=== PATIENT | female | born 2000 | race Caucasian/White ===

== ENCOUNTER 2021-06-21 13:52 | Emergency (ER) | payer BC, SELFPAY ==
[2021-06-21 14:22] VITALS: BP 121/68; PULSE 112; RESP 18; TEMP 36.6; O2SAT 96
[2021-06-21 16:36] VITALS: BP 103/68; PULSE 155; O2SAT 100
[2021-06-21 16:55] VITALS: BP 130/89; PULSE 135; RESP 18; O2SAT 98
--- NOTE | 2021-06-21 17:06 | ED.NAVMDI ---
HPI - Nausea/Vomiting/Diarrhea General Chief complaint: Nausea/Vomiting/Diarrhea Stated complaint: N/V/D XTD Time Seen by Provider: 06/21/21 16:53 Source: patient Mode of arrival: ambulatory Limitations: no limitations History of Present Illness HPI Narrative: Patient is a 21-year-old female complaining of nausea, vomiting, diarrhea that started early this morning. Patient describes her vomitus is nonbilious nonbloody had approximately 12-15 episodes since onset. Diarrhea described as loose watery nonbloody, has had approximately 10-12 episodes since onset. Patient states that boyfriend has similar symptoms, started last night. Patient denies any chest pain, shortness of breath, abdominal pain, fever, chills or GI bleeding. Related Data Allergies Allergy/AdvReac Type Severity Reaction Status Date / Time No Known Allergies Allergy Verified 06/21/21 16:58 Review of Systems Review of Systems: All systems reviewed & are unremarkable except as noted in HPI and below Constitutional: Constitutional: Denies body ache(s), Denies chills, Denies excessive sweating, Denies fatigue, Denies fever(s), Denies headache(s), Denies lethargy, Denies malaise, Denies weakness and Denies weight loss Eyes: Eyes: Denies blurry vision, Denies change in vision and Denies loss of vision ENT: Denies dizziness, Denies ear discharge, Denies headache(s), Denies lip swelling, Denies epistaxis, Denies nasal congestion, Denies neck pain, Denies throat swelling and Denies tongue swelling Cardiovascular: Cardiovascular: Denies chest pain, Denies chest pain at rest, Denies chest pain with activity, Denies diaphoresis, Denies rapid heart rate, Denies edema, Denies irregular heart rhythm, Denies lightheadedness, Denies palpitations, Denies dyspnea and Denies dyspnea on exertion Respiratory: Respiratory: Denies chest congestion, Denies cough, Denies hemoptysis, Denies dyspnea and Denies dyspnea on exertion Gastrointestinal: Gastrointestinal: Denies abdominal pain, Denies melena, Denies hematochezia and Denies hematemesis Musculoskeletal: Musculoskeletal: Denies abnormal gait, Denies deformity, Denies joint swelling, Denies limited range of motion, Denies neck pain and Denies numbness Neurologic: Denies Abnormal speech present, Denies abnormal gait, Denies confusion, Denies dizziness, Denies headache(s), Denies focal weakness, Denies loss of vision, Denies numbness, Denies Other visual disturbances, Denies Sensory deficit (Neuro) and Denies weakness Psychiatric: Psychiatric: Denies confusion, Denies depression, Denies auditory hallucinations, Denies homicidal ideation and Denies suicidal ideation Endocrine: Endocrine: Denies cold intolerance, Denies excessive sweating, Denies fatigue, Denies heat intolerance and Denies palpitations Hematologic/Lymphatic: Hematologic/Lymphatic: Denies easy bleeding and Denies easy bruising Allergic/Immunologic: Allergic/Immunologic: Denies lip swelling, Denies throat swelling and Denies tongue swelling PMFSH Comments Past medical history: None Family history: Noncontributory Social history: Non-smoker no EtOH or drug use Exam Const: General: cooperative, healthy appearing, comfortable, no acute distress, well developed, alert and awake; No confusion Orientation/consciousness: oriented to person, oriented to place, oriented to time, patient oriented x3 and No confusion Limitations: no limitations HENMT: Head: normal to inspection, normocephalic and atraumatic Ears: hearing grossly normal bilaterally, TM normal on the right and TM normal on the left General nose exam: Normal external nose present, Normal nares present and No nasal discharge present Face and sinus: normal facial exam Mouth: Yes Normal oral and palatal mucosa present, Yes lip normal, Yes tongue normal and Yes oropharynx normal Throat: posterior oropharynx normal, tonsils normal and uvula midline Eyes: General: appearance normal, both eyes and all related structures Pup
[2021-06-21 17:14] LABS: Hematocrit 43.3 % (37.0-47.0); Hemoglobin 14.5 g/dL (12.0-15.0); Mean Corpuscular HGB Conc 33.5 g/dl (32-36); Mean Corpuscular Hemoglobin 27.3 pg (26-34); Mean Corpuscular Volume 81.5 fl (80-100); Mean Platelet Volume 12.4 fl (7.4-10.4); Platelet Count Result 200 k/mm3 (150-375); Red Blood Count 5.31 M/mm3 (4.2-5.4); Red Cell Distribution Width 12.2 % (11.5-14.5); White Blood Count 9.6 K/mm3 (4.5-10.0)
[2021-06-21] MEDS: ONDANSETRON INJ 4 MG/2 ML VIAL IV PUSH (17:23)
[2021-06-21] MEDS: SODIUM CHLORIDE 0.9% IV 1,000 ML 999 ML IV CONT ×2 (17:24→19:01)
[2021-06-21 17:25] LABS: Alanine Aminotransferase 17 U/L (4-35); Albumin Level 4.9 g/dL (3.5-5.1); Alkaline Phosphatase 49 U/L (38-126); Anion Gap 16 mmol/L (8-16); Aspartate Amino Transferase 21 U/L (14-36); Blood Urea Nitrogen 19 mg/dL (7-17); Calcium 9.8 mg/dL (8.4-10.2); Carbon Dioxide 21 mmol/L (22-30); Chloride 104 mmol/L (98-107); Estimated CRCL calculation 114 ml/min; Estimated Glomerular Filt Rate > 60; Glucose 139 mg/dL (65-110); Lipase 15 U/L (23-300); Sodium 141 mmol/L (137-145)
[2021-06-21 18:00] LABS: Band Neutrophils Percent 4 % (0-6); Lymphocytes Absolute Manual 0.19 K/mm3 (1.1-4.5); Monocytes Absolute Manual 0.19 K/mm3 (0.1-0.90); Monocytes Percent Manual 2 % (3-9); Neutrophils Absolute Manual 9.21 K/mm3 (1.7-7.2); Neutrophils Percent Manual 92 % (46-73); Total Cells Counted 100
[2021-06-21 18:01] LABS: Platelet Estimate Adequate (Adequate)
[2021-06-21 18:29] VITALS: BP 107/76; PULSE 105; RESP 19; O2SAT 100
[2021-06-21 19:46] VITALS: BP 104/69; PULSE 95; RESP 18; O2SAT 100
== END 2021-06-21 19:54 | disposition home or self-care (01) ==
PROVIDERS: Emergency Provider Emergency Medicine; PCP Nurse Practitioner Family
DX: K52.9 Noninfective gastroenteritis and colitis, unspecified (principal); R11.2 Nausea with vomiting, unspecified
CPT/HCPCS: 36415; 80053; 81025; 83690; 85025; 96361; 96374; 99284; J2405; J7030

== ENCOUNTER 2022-01-21 07:19 | Outpatient (CLI) | payer BC, SELFPAY ==
[2022-01-21 07:54] LABS: Basophils Absolute Auto 0.1 K/mm3 (0.0-0.1); Basophils Percent Auto 0.9 % (0.2-1.2); Eosinophils Absolute Auto 0.1 K/mm3 (0-0.3); Eosinophils Percent Auto 2.2 % (0-4.4); Hematocrit 36.6 % (37.0-47.0); Hemoglobin 12.3 g/dL (12.0-15.0); Immature Granulocyte Absolute 0.02 K/mm3 (0.00-0.031); Immature Granulocyte Percent A 0.4 % (0-0.5); Lymphocytes Absolute Auto 1.12 K/mm3 (0.9-3.2); Lymphocytes Percent Auto 20.9 % (18.3-44.2); Mean Corpuscular HGB Conc 33.6 g/dl (32-36); Mean Corpuscular Volume 80.3 fl (80-100); Mean Platelet Volume 12.2 fl (7.4-10.4); Monocytes Absolute Auto 0.4 K/mm3 (0.1-0.6); Monocytes Percent Auto 6.5 % (2.6-8.5); Neutrophils Absolute Auto 3.7 K/mm3 (1.3-6.7); Neutrophils Percent Auto 69.1 % (45.5-73.1); Platelet Count Result 178 k/mm3 (150-375); Red Blood Count 4.56 M/mm3 (4.2-5.4); Red Cell Distribution Width 12.6 % (11.5-14.5); White Blood Count 5.4 K/mm3 (4.5-10.0)
[2022-01-21 08:46] LABS: HIV 1/2 Ab P24 Ag Result Negative (Negative)
[2022-01-21 09:45] LABS: Rubella IgG Antibody 48.5 IU/ML
[2022-01-21 11:20] LABS: Hepatitis B Surface Antigen Negative (Negative)
[2022-01-24 07:10] LABS: Rapid Plasma Reagin Non-Reactive (NonReactive)
[2022-01-25 14:55] LABS: Varicella IgG Antibody <135.00 Index (>=165.00)
== END 2022-01-21 07:20 | disposition home or self-care (01) ==
LOC: ANHLAB 07:20
PROVIDERS: PCP Nurse Practitioner Family; Visit Provider Obstetrics & Gynecology
DX: N94.89 Other specified conditions associated with female genital organs and menstrual cycle (principal)
CPT/HCPCS: 36415; 84702; 85025; 86592; 86644; 86703; 86747; 86762; 86787; 86850; 86900; 86901; 87086; 87340; G0432

== ENCOUNTER 2022-05-10 03:04 | Emergency (ER) | payer BC, SELFPAY ==
[2022-05-10 03:06] VITALS: BP 115/71; PULSE 119; RESP 16; TEMP 37; O2SAT 98
--- NOTE | 2022-05-10 03:32 | ED.DENTAL ---
HPI - Dental/Oral General Chief complaint: Dental/Oral Stated complaint: Dental/ R ear pain with edema. 22wk preg Time Seen by Provider: 05/10/22 03:26 History of Present Illness HPI Narrative: Patient is a 22-year-old female who presents ER with dental pain. Noticed a couple days what she is starting to some best comfort in her left ear. She thought it is related to his she had increased pain over the last 2 days and tonight realized that her left upper lip was swelling and has discomfort with eating and drinking. No fevers or chills or sweats. No difficulty breathing or swallowing. Patient is currently 22 weeks . Related Data Home Medications Medication Instructions Recorded Confirmed doxylamine succinate 25 mg tablet 25 mg PO QHS PRN 03/21/22 03/21/22 (Unisom (doxylamine)) vitamins-iron fumarate 65 1 tablet PO DAILY 03/21/22 03/21/22 mg iron-folic acid 1 mg tablet Allergies Allergy/AdvReac Type Severity Reaction Status Date / Time No Known Allergies Allergy Verified 05/10/22 03:19 Review of Systems Constitutional: Constitutional: Denies chills and Denies fever(s) ENT: Denies nasal congestion and Denies sore throat Comments: Dental pain, ear pain. 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 HEAD: Normocephalic, atraumatic. ENT: Mucous membranes moist. Mild swelling left upper lip without discernible abscess in the intraoral aspect. TMs normal bilaterally. Nostrils free of abscess/swelling. NEURO: Alert and oriented x3. PSYCH: Normal mood and affect. Course Course Emergency Course: Discussed treatment plan. Discharge home. Vital Signs Vital signs: Vital Signs Temperature 98.6 F 05/10/22 03:06 Pulse Rate 119 H 05/10/22 03:06 Respiratory Rate 16 05/10/22 03:06 Blood Pressure 115/71 05/10/22 03:06 Pulse Oximetry 98 05/10/22 03:06 Oxygen Delivery Room Air 05/10/22 03:06 Temperature 98.6 F 05/10/22 03:06 Pulse Rate 119 H 05/10/22 03:06 Respiratory Rate 16 05/10/22 03:06 Blood Pressure 115/71 05/10/22 03:06 Pulse Oximetry 98 05/10/22 03:06 Oxygen Delivery Room Air 05/10/22 03:06 Discharge Plan Discharge Clinical Impression: Toothache Patient Disposition: Home, Self-Care Condition: Stable Instructions: Antibiotic Form, Dental Abscess (ED) Additional Instructions: Return the ER if you have difficulty breathing, you have difficulty swallowing, you have worsening swelling, you have additional concerns. Follow-up with a dentist for further treatment evaluation. Prescriptions: New penicillin V potassium 500 mg tablet 500 mg PO QID 7 Days Qty: 28 0RF No Action pyridoxine (vitamin B6) 25 mg tablet 25 mg PO TID Qty: 120 1RF Unisom (doxylamine) 25 mg tablet 25 mg PO QHS PRN vit-iron fum-folic ac 65 mg iron- 1 mg tablet 1 tablet PO DAILY Follow-up/Referrals: Haile,ASHANTI Bella [Primary Care Provider] -
== END 2022-05-10 03:40 | disposition home or self-care (01) ==
PROVIDERS: Emergency Provider Emergency Medicine; PCP Nurse Practitioner Family
DX: K08.89 Other specified disorders of teeth and supporting structures (principal)
CPT/HCPCS: 99283

== ENCOUNTER 2022-05-10 12:57 | Emergency (ER) | payer BC, SELFPAY ==
--- NOTE | ~2022-05-10 | CT_ITS ---
EXAMINATION: CT facial bones w con DATE: 05/10/2022 16:17 INDICATION: Rule out dental abscess . TECHNIQUE: Computed tomography (CT) of the facial bones and maxillofacial region was performed with 7 5 mL intravenous contrast. Automated exposure control and iterative reconstruction technique were emp loyed. The dose-length product was 333.40 mGy-cm. COMPARISON: None. FINDINGS: Soft Tissues: 5 x 14 mm fluid density rim-enhancing collection adjacent to the left anterior maxilla ry arch, with surrounding soft tissue induration extending into the left cheek, left upper lip and le ft side of the mouth, and adjacent to the left nose. Facial bones: No acute fracture. Periapical lucency, with the suggestion of cortical breakthrough at the left lateral maxillary incisor. Additional periapical lucency adjacent to the roots of the right first maxillary molar, with cortical breakthrough but no adjacent soft tissue change. Eyes: The globes are intact. The soft tissue planes of the orbits are maintained. Paranasal Sinuses: Mild bilateral maxillary sinus mucosal thickening, the remaining visualized aerat ed spaces are clear. Foreign Bodies: No radiopaque foreign bodies. Other Findings: None. IMPRESSION: 14 mm odontogenic abscess originating from the left lateral maxillary incisor, with considerable surr ounding left facial cellulitis. Reviewed, dictated and finalized at location K. IMPRESSION: 14 mm odontogenic abscess originating from the left lateral maxillary incisor, with considerable surrounding left facial cellulitis.
[2022-05-10 13:03] VITALS: BP 136/80; PULSE 110; RESP 20; TEMP 36.2; O2SAT 100
--- NOTE | 2022-05-10 14:47 | ED.GENADULT ---
HPI - General Adult General Chief complaint: Unspecified Stated complaint: increaesed facial swelling since this ams visit Time Seen by Provider: 05/10/22 14:34 Source: patient Mode of arrival: ambulatory Limitations: no limitations Related Data Home Medications Medication Instructions Recorded Confirmed doxylamine succinate 25 mg tablet 25 mg PO QHS PRN 03/21/22 03/21/22 (Unisom (doxylamine)) vitamins-iron fumarate 65 1 tablet PO DAILY 03/21/22 03/21/22 mg iron-folic acid 1 mg tablet Allergies Allergy/AdvReac Type Severity Reaction Status Date / Time No Known Allergies Allergy Verified 05/10/22 03:19 [facility] Past Medical History Medical History Anxiety Depression Family History Family History Other Hypertension Social History Social History (Updated 01/19/22 @ 15:16 by Monica Clark MA) Smoking status: Never smoker Alcohol intake: never Substance use: never Substance use type: does not use 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 Rangel came to the emergency room and try to aspirate the abscess without success. Patient received IV fluid, IV Unasyn of 3 g, was advised to stop penicillin and to start clindamycin and to follow-up with Dr. Garcia, the oral surgeon in [place]. I gave the patient a copy of the blood work-up and CD of the CAT scan Vital Signs Vital signs: Vital Signs Temperature 36.2 C L 05/10/22 13:03 Pulse Rate 110 H 05/10/22 13:03 Respiratory Rate 20 05/10/22 13:03 Blood Pressure 136/80 05/10/22 13:03 Pulse Oximetry 100 05/10/22 13:03 Oxygen Delivery Room Air 05/10/22 13:03 Temperature 36.2 C L 05/10/22 13:03 Pulse Rate 110 H 05/10/22 13:03 Respiratory Rate 20 05/10/22 13:03 Blood Pressure 136/80 05/10/22 13:03 Pulse Oximetry 100 05/10/22 13:03 Oxygen Delivery Room Air 05/10/22 13:03 Medical Decision Making Vital Signs Vital Signs: Vital Signs Temperature 36.2 C L 05/10/22 13:03 Pulse Rate 110 H 05/10/22 13:03 Respiratory Rate 20 05/10/22 13:03 Blood Pressure 136/80 05/10/22 13:03 Pulse Oximetry 100 05/10/22 13:03 Oxygen Delivery Room Air 05/10/22 13:03 Temperature 36.2 C L 05/10/22 13:03 Pulse Rate 110 H 05/10/22 13:03 Respiratory Rate 20 05/10/22 13:03 Blood Pressure 136/80 05/10/22 13:03 Pulse Oximetry 100 05/10/22 13:03 Oxygen Delivery Room Air 05/10/22 13:03 Lab Data Result diagrams: 05/10/22 15:24 05/10/22 15:24 Labs: Lab Results 05/10/22 05/10/22 Range/Units 15:24 15:24 WBC 14.7 H (4.5-10.0) K/mm3 RBC 4.37 (4.2-5.4) M/mm3 Hgb 11.9 L (12.0-15.0) g/dL Hct 36.1 L (37.0-47.0) % MCV 82.6 (80-100) fl MCH 27.2 (26-34) pg MCHC 33.0 (32-36) g/dl RDW 12.8 (11.5-14.5) % Plt Count 174 (150-375) k/mm3 MPV 11.4 H (7.4-10.4) fl Immature Gran % (Auto) 0.9 H (0-0.5) % Neut % (Auto) 85.2 H (45.5-73.1) % Lymph % (Auto) 6.1 L (18.3-44.2) % Major % (Auto) 7.2 (2.6-8.5) % Eos % (Auto) 0.3 (0-4.4) % Baso % (Auto) 0.3 (0.2-1.2) % Lymph # (Auto) 0.89 L (0.9-3.2) K/mm3 Major # (Auto) 1.1 H (0.1-0.6) K/mm3 Eos # (Auto) 0.1 (0-0.3) K/mm3 Baso # (Auto) 0.0 (0.0-0.1) K/mm3 Abs Immat Gran (auto) 0.13 H (0.00-0.031) K/mm3 Absolute Neuts (auto) 12.5 H (1.3-6.7) K/mm3 Absolute Nucleated RBC 0.0 (0.0-0.012) K/mm3 Nucleated RBC % 0.0 (0.0-0.2) % Sodium 137 (137-145) mmol/L Potassium 3.7 (3.4-5.0) mmol/L Chloride 103 (98-107) mmol/L Carbon Dioxide 22 (22-30) mmol/L Anion Gap 12 (8-16) mmol/L BUN 4 L
[2022-05-10 15:31] LABS: Basophils Percent Auto 0.3 % (0.2-1.2); Eosinophils Absolute Auto 0.1 K/mm3 (0-0.3); Eosinophils Percent Auto 0.3 % (0-4.4); Hematocrit 36.1 % (37.0-47.0); Hemoglobin 11.9 g/dL (12.0-15.0); Immature Granulocyte Absolute 0.13 K/mm3 (0.00-0.031); Immature Granulocyte Percent A 0.9 % (0-0.5); Lymphocytes Absolute Auto 0.89 K/mm3 (0.9-3.2); Lymphocytes Percent Auto 6.1 % (18.3-44.2); Mean Corpuscular Hemoglobin 27.2 pg (26-34); Mean Corpuscular Volume 82.6 fl (80-100); Mean Platelet Volume 11.4 fl (7.4-10.4); Monocytes Absolute Auto 1.1 K/mm3 (0.1-0.6); Monocytes Percent Auto 7.2 % (2.6-8.5); Neutrophils Absolute Auto 12.5 K/mm3 (1.3-6.7); Neutrophils Percent Auto 85.2 % (45.5-73.1); Platelet Count Result 174 k/mm3 (150-375); Red Blood Count 4.37 M/mm3 (4.2-5.4); Red Cell Distribution Width 12.8 % (11.5-14.5); White Blood Count 14.7 K/mm3 (4.5-10.0)
[2022-05-10 15:41] LABS: Anion Gap 12 mmol/L (8-16); Blood Urea Nitrogen 4 mg/dL (7-17); Carbon Dioxide 22 mmol/L (22-30); Chloride 103 mmol/L (98-107); Estimated CRCL calculation 150 ml/min; Estimated Glomerular Filt Rate > 60; Glucose 97 mg/dL (65-110); Potassium 3.7 mmol/L (3.4-5.0); Sodium 137 mmol/L (137-145)
--- NOTE | 2022-05-10 15:47 | PC.NURSE ---
Pt to CT
--- NOTE | 2022-05-10 18:02 | P.PCNBED_ITS ---
Procedures Other Procedures Procedure 1: Other Procedure: Incision and drainage of left maxillary facial abscess CT reviewed consents obtained risks benefits costs discussed in great detail. Area had a small area of topical Cetacaine applied 0.5 cc 1% lidocaine injected into the gingival la bial sulcus 11 blade utilized to cut the mucosa blunt dissection was carried in the abscess cavity very scant amount of purulence came patient tolerated the procedure well
--- NOTE | 2022-05-10 18:02 | WPDCN ---
Assessment and Plan Assessment and plan (1) Toothache: Code(s): K08.89 - Other specified disorders of teeth and supporting structures Status: Acute Assessment and Plan: could consider changing from penicillin K to clindamycin if safe for recommend follow-up with Oral math facial oral maxillary facial surgery perhaps at [facility]. warm compresses patient must push on this area if there is any remnant abscess it could be expressed out. (2) Abscess, dental: Code(s): K04.7 - Periapical abscess without sinus Status: Acute (3) Facial abscess: Code(s): L02.01 - Cutaneous abscess of face Status: Acute HPI Data of Consult Date/Time: 05/10/22 18:02 Primary Care Provider: Shayne Be, CLINIC MD ASSOCIATE Consult Narrative Narrative: Cindy Sotelo is a 22 year old female with odontogenic left lateral incisor abscess spread into face has taken penicillin K x1 patient is also . ENT consult id for further evaluation treatment CT does demonstrate an odontogenic abscess which has spread into the soft tissue of the face released with spreading cellulitis. Facial edema. 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 Gender identity (if verbalized by the patient): Female Sexual Orientation (if Verbalized by the Patient): Straight or Heterosexual Meds Home Medications and Allergies Home Medications Medication Instructions Recorded Confirmed Type pyridoxine (vitamin B6) 25 mg 25 mg PO TID #120 tabs 02/22/22 02/22/22 Rx tablet doxylamine succinate 25 mg tablet 25 mg PO QHS PRN 03/21/22 03/21/22 History (Unisom (doxylamine)) vitamins-iron fumarate 65 1 tablet PO DAILY 03/21/22 03/21/22 History mg iron-folic acid 1 mg tablet clindamycin HCl 300 mg capsule 300 mg PO Q6H #40 caps 05/10/22 Rx (Cleocin HCl) hydrocodone 5 mg-acetaminophen 325 1 tablet PO Q6H #20 tabs 05/10/22 Rx mg tablet penicillin V potassium 500 mg 500 mg PO QID 7 days #28 tabs 05/10/22 Rx tablet Allergies Allergy/AdvReac Type Severity Reaction Status Date / Time No Known Allergies Allergy Verified 05/10/22 03:19 Vital Signs Vital Signs - 24 hr 05/10/22 13:03 Temperature 36.2 C L Pulse Rate 110 H Respiratory Rate 20 Blood Pressure 136/80 Pulse Oximetry 100 Oxygen Delivery Room Air Exam Narrative: Facial edema see procedure note abscess drained with very little purulence obtained. I was able to pop into the cavity Results Labs CBC & Chem 7: 05/10/22 15:24 05/10/22 15:24 Labs: Short CBC 05/10/22 Range/Units 15:24 WBC 14.7 H (4.5-10.0) K/mm3 Hgb 11.9 L (12.0-15.0) g/dL Hct 36.1 L (37.0-47.0) % Plt Count 174 (150-375) k/mm3 BMP 05/10/22 15:24 Sodium 137 Potassium 3.7 Chloride 103 Carbon Dioxide 22 BUN 4 L D Creatinine 0.50 L Glucose 97 Calcium 9.0
[2022-05-10] MEDS: AMPICILLIN SULB 3 GM/NS 100 ML 3 GM/100 ML VIAL IVPB (18:23)
[2022-05-10 18:52] VITALS: BP 131/84; PULSE 108; RESP 18; O2SAT 100
== END 2022-05-10 19:07 | disposition home or self-care (01) ==
PROVIDERS: Emergency Provider Emergency Medicine; PCP Nurse Practitioner Family
DX: K04.7 Periapical abscess without sinus (principal); K12.2 Cellulitis and abscess of mouth; F41.9 Anxiety disorder, unspecified; F32.9 Major depressive disorder, single episode, unspecified
CPT/HCPCS: 36415; 41800; 70487; 80048; 85025; 96374; 99284; J0295; Q9967

== ENCOUNTER 2022-06-21 07:43 | Outpatient (CLI) | payer BC, SELFPAY ==
[2022-06-21 09:59] LABS: Basophils Absolute Auto 0.1 K/mm3 (0.0-0.1); Basophils Percent Auto 0.6 % (0.2-1.2); Eosinophils Absolute Auto 0.2 K/mm3 (0-0.3); Eosinophils Percent Auto 1.8 % (0-4.4); Hematocrit 32.8 % (37.0-47.0); Hemoglobin 10.5 g/dL (12.0-15.0); Immature Granulocyte Absolute 0.09 K/mm3 (0.00-0.031); Lymphocytes Absolute Auto 1.27 K/mm3 (0.9-3.2); Lymphocytes Percent Auto 14.4 % (18.3-44.2); Mean Corpuscular Hemoglobin 26.7 pg (26-34); Mean Corpuscular Volume 83.5 fl (80-100); Mean Platelet Volume 12.5 fl (7.4-10.4); Monocytes Absolute Auto 0.6 K/mm3 (0.1-0.6); Monocytes Percent Auto 7.1 % (2.6-8.5); Neutrophils Absolute Auto 6.6 K/mm3 (1.3-6.7); Neutrophils Percent Auto 75.1 % (45.5-73.1); Platelet Count Result 174 k/mm3 (150-375); Red Blood Count 3.93 M/mm3 (4.2-5.4); Red Cell Distribution Width 12.7 % (11.5-14.5); White Blood Count 8.8 K/mm3 (4.5-10.0)
[2022-06-21 10:03] LABS: Glucose 1 Hour PP 50gm Dose 92 mg/dL
[2022-06-21 10:44] LABS: HIV 1/2 Ab P24 Ag Result Negative (Negative)
[2022-06-21] MEDS: RHO(D) IMMUNE GLOBULIN 300 MCG/2 ML SYRINGE IM (12:49)
== END 2022-06-21 07:44 | disposition home or self-care (01) ==
LOC: ANHLAB 07:44
PROVIDERS: PCP Nurse Practitioner Family; Visit Provider Obstetrics & Gynecology
DX: Z34.90 Encounter for supervision of normal pregnancy, unspecified, unspecified trimester (principal); Z3A.00 Weeks of gestation of pregnancy not specified
CPT/HCPCS: 36415; 82947; 85025; 85461; 86703; 86850; 86900; 86901; 90384; 96372; G0432; J2790

== ENCOUNTER 2022-09-13 16:49 | Inpatient (IN) | payer BC, SELFPAY ==
[2022-09-13 17:26] VITALS: BMI 30.8
--- NOTE | 2022-09-13 17:34 | LDADM ---
This patient, Cindy Sotelo, was admitted to Labor/Delivery/Recovery 108 on 09/13/22 at 16:49. Plans for labor, pain management and were discussed with patient. Patient/family oriented to hospital policies and general routines including ID bracelet, bed and alarms, visiting hours, pain management, procedures, bathroom and other care routines, personal items, smoking policy, room service/diet and guest tray routines, infant security routines, and visiting hours. Patient/Family are encouraged to report perceived risks to care and to ask questions if they do not understand what they are told or what they should do. See OBIX for further documentation.
[2022-09-13 17:50] LABS: Basophils Absolute Auto 0.1 K/mm3 (0.0-0.1); Basophils Percent Auto 0.5 % (0.2-1.2); Eosinophils Absolute Auto 0.2 K/mm3 (0-0.3); Eosinophils Percent Auto 1.5 % (0-4.4); Hematocrit 38.5 % (37.0-47.0); Immature Granulocyte Absolute 0.27 K/mm3 (0.00-0.031); Immature Granulocyte Percent A 2.3 % (0-0.5); Lymphocytes Absolute Auto 1.68 K/mm3 (0.9-3.2); Lymphocytes Percent Auto 14.4 % (18.3-44.2); Mean Corpuscular HGB Conc 33.8 g/dl (32-36); Mean Corpuscular Hemoglobin 27.4 pg (26-34); Mean Corpuscular Volume 81.2 fl (80-100); Mean Platelet Volume 11.9 fl (7.4-10.4); Monocytes Absolute Auto 0.8 K/mm3 (0.1-0.6); Monocytes Percent Auto 7.1 % (2.6-8.5); Neutrophils Absolute Auto 8.7 K/mm3 (1.3-6.7); Neutrophils Percent Auto 74.2 % (45.5-73.1); Platelet Count Result 133 k/mm3 (150-375); Red Blood Count 4.74 M/mm3 (4.2-5.4); Red Cell Distribution Width 14.7 % (11.5-14.5); White Blood Count 11.7 K/mm3 (4.5-10.0)
[2022-09-13 18:30] VITALS: RESP 14; TEMP 36.6
[2022-09-13] MEDS: LACTATED RINGERS 1,000 ML 125 ML IV CONT (18:40)
--- NOTE | 2022-09-13 18:54 | WPDANESEPP ---
Anes - Eval Pre Procedure Procedure: labor epidural Date/Time: 09/13/22 18:54 Surgeon: candelario Preop Diagnosis: pain during labor Pre Op Diagnosis: iol Patient Data Age: 22 Gender: F Height: 1.68 m Weight: 86.6 kg Last Vital Signs O2 Del Method Room Air 09/13/22 17:26 Allergies Allergy/AdvReac Type Severity Reaction Status Date / Time No Known Allergies Allergy Verified 09/12/22 16:51 Home Medications Medication Instructions Recorded Confirmed Type vitamins-iron fumarate 65 1 tablet PO DAILY 03/21/22 09/12/22 History mg iron-folic acid 1 mg tablet ferrous sulfate 325 mg (65 mg 325 mg PO DAILY 08/14/22 09/12/22 History iron) tablet,delayed release Laboratory Tests 09/13/22 09/13/22 09/13/22 17:20 17:20 17:20 WBC 11.7 K/mm3 H K/mm3 (4.5-10.0) RBC 4.74 M/mm3 M/mm3 (4.2-5.4) Hgb 13.0 g/dL g/dL (12.0-15.0) Hct 38.5 % % (37.0-47.0) MCV 81.2 fl fl (80-100) MCH 27.4 pg pg (26-34) MCHC 33.8 g/dl g/dl (32-36) RDW 14.7 % H % (11.5-14.5) Plt Count 133 k/mm3 L k/mm3 (150-375) MPV 11.9 fl H fl (7.4-10.4) Immature Gran % (Auto) 2.3 % H % (0-0.5) Neut % (Auto) 74.2 % H % (45.5-73.1) Lymph % (Auto) 14.4 % L % (18.3-44.2) [place] % (Auto) 7.1 % % (2.6-8.5) Eos % (Auto) 1.5 % % (0-4.4) Baso % (Auto) 0.5 % % (0.2-1.2) Lymph # (Auto) 1.68 K/mm3 K/mm3 (0.9-3.2) [place] # (Auto) 0.8 K/mm3 H K/mm3 (0.1-0.6) Eos # (Auto) 0.2 K/mm3 K/mm3 (0-0.3) Baso # (Auto) 0.1 K/mm3 K/mm3 (0.0-0.1) Abs Immat Gran (auto) 0.27 K/mm3 H K/mm3 (0.00-0.031) Absolute Neuts (auto) 8.7 K/mm3 H K/mm3 (1.3-6.7) Absolute Nucleated RBC 0.0 K/mm3 K/mm3 (0.0-0.012) Nucleated RBC % 0.0 % % (0.0-0.2) RPR Pending Blood Type A Negative Antibody Screen Pending Patient hx anesthesia problems: none Family hx anesthesia problems: none Results Review: All pre-operative results and documents have been reviewed as part of the pre-operative evaluation. [facility] Past Medical History Medical History Anxiety Depression Family History Family History Grandparent Hypertension Mother Hypertension Social History Social History Smoking status: Never smoker Alcohol intake: never Substance use: never Substance use type: does not use Lack of Transportation: No Lack of Food: Never True Current Housing: I Have Housing Concerned About Future Housing: No Difficulty Paying Gas/Electric Bills: No Difficulty Paying for Meds: No Currently Unemployed: No Education: High School Diploma/GED Difficulty w/ Childcare or Family Care: No Living arrangements: with family Occupation/Education: occupation 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
[2022-09-13 19:10] VITALS: RESP 14; TEMP 36.6
[2022-09-13] MEDS: DINOPROSTONE 10 MG VAG INSERT VAGINAL (19:10)
[2022-09-13 19:40] VITALS: RESP 16; TEMP 36.8
[2022-09-13 20:10] VITALS: RESP 14; TEMP 36.6
[2022-09-13 20:40] VITALS: RESP 16; TEMP 36.8
[2022-09-13 21:10] VITALS: RESP 12; TEMP 36.6
[2022-09-14] VITALS (172 sets, daily range): BP systolic 70–136; BP diastolic 50–91; PULSE 80–153; RESP 16–18; TEMP 36.6–37.9; O2SAT 96–100
[2022-09-14] MEDS: LACTATED RINGERS 1,000 ML 125 ML IV CONT ×3 (02:30→08:45)
[2022-09-14] MEDS: OXYTOCIN 30 UNITS/NS 500 ML 30 UNITS/500 ML BAG IV CONT (09:41)
--- NOTE | 2022-09-14 10:12 | WPDHPUPDATE1 ---
History and Physical Update Update Date/Time: 09/14/22 10:12 History and Physical has been reviewed, including an updated exam of the patient. There are NO changes in the patient's condition. Risks, benefits, and alternatives have been discussed and questions answered. Patient agrees to proceed with procedure.
--- NOTE | 2022-09-14 10:12 | WPDOBADMIT ---
Obstetrics - Admit Note Admission Note: record reviewed. No pertinent additions to the history and/or any subsequent changes in the physical findings that are not consistent with the expected course of the were found. Additions to the history and/or subsequent changes in the physical findings follow. None.
--- NOTE | 2022-09-14 10:12 | PM.OBPRVD ---
OB - Delivery Note Procedure Induction method: Per Cervidil Protocol Delivery augmentation: Rupture of Membranes Delivery monitor: External FHT and External Uterine Route of delivery: Episiotomy description: None Laceration Description: Periurethral and Perineal - 2nd Degree Delivery repair: chromic Specimen: No Quantitative Blood Loss (ml): 500 Anesthesia type: Epidural Disposition: Floor Complications: None Narrative: patient prepped draped usual manner for this procedure. Maternal expulsive efforts readily delivered vertex over intact perineum. Nuchal cord was noted and reduced. Rest baby was delivered without difficulty and baby was placed on maternal abdomen. Cord was clamped and cut and placenta delivered spontaneously. Evaluation of the cervix vaginal vulva revealed second-degree lacerations wears right periurethral tear. Pay reach through tear was rendered hemostatic with [id number] 2-0 chromic suture. The vaginal tissue then was approximated using 2-0 chromic in a running interlocking manner to approximate the vaginal tissue, deep tissue also with 2-0 chromic and a subcuticular layer with good approximation hemostasis noted. Uterus was well contracted there was no significant bleeding the patient and baby were both doing well postoperatively. Baby Weeks of gestation at delivery: 40 Infant gender: Female Weight (pounds): 7 Weight (ounces): 6 presentation: vertex Placenta delivery description: Spontaneous Cord Vessel Description: 3 Vessels, Nuchal Cord and Reduced score one minute: 8 score five minutes: 9 AMG Delivery Billing Delivery Delivery: Delivery Charge
[2022-09-14] MEDS: OXYTOCIN 30 UNITS/NS 500 ML 30 UNITS/500 ML BAG 125 UNITS IV CONT (10:21)
[2022-09-14] MEDS: miSOPROStol 200 MCG TABLET 1000 MCG RECTAL (11:26)
[2022-09-14] MEDS: ceFAZolin 2 GM/D5W 50 ML 2 GM/50 ML BAG IVPB (11:50)
[2022-09-14 13:09] LABS: Rapid Plasma Reagin Non-Reactive (NonReactive)
--- NOTE | 2022-09-14 14:05 | OBPPTRN ---
Patient transferred to post room # 291 via wheelchair accompanied by support person and infant. PT introductions made and plan of care discussed per post , pain management, breast feeding, daily care activities. PT and spouse both recipients of such instructions and no barriers to learning identified at this time. PT received such instructions per one to one discussion, mom baby care guide and demonstrations this shift. PT verbalized understanding of such care.
[2022-09-14] MEDS: WITCH HAZEL 40 PADS 1 PAD TOPICAL (14:08)
[2022-09-14] MEDS: BENZOCAINE 20% AER SPR (*SP) 56 GM CAN 1 SPRAY TOPICAL (14:08)
--- NOTE | 2022-09-14 15:43 | PC.NURSE ---
Addendum entered by Ly Desir RN 09/14/22 15:58: Initial assessment of the breast there was a blood blister in the center of the right nipple and left nipple is sore as well. Encouraged mother with supporting the breast with the sandwich hold, big,open, wide gape, then given a mouthful of breast to protect the nipple. Original Note: [id number] Introductions were made, then consulted with patient to assess needs related to . Mother led the conversation with her?plans to feed?her and the?experience so far. Resources provided for inpatient and outpatient services with the feeding sheet, mom/baby guide and name written on the white board. Mother voiced understanding of information and consents for assistance. Mother works well with her infant with encouragement and education. Encouraged understanding of the benefits of skin to skin (demonstrating unwrapping and placing upright on her chest), stimulating with massage touch, changing positions to encourage wakefulness, how to watch for early feeding cues, responsive feeding, feeding on demand (aiming for 8-12 times in 24 hours, about every 2-3 hours), milk production, building/maintaining a milk supply, duration of feeding, signs of adequate intake/output and how to record on the feeding sheet. Infant was unwrapped and placed skin to skin on mother. Reviewed positioning and ear, shoulder, hip alignment, supporting the breast to facilitate a deep latch, asymmetrical latch (off-center), leading with the chin with a big, open, wide gape and body close to mother. Infant latched optimally to the left breast in cross cradle position. Education given to mother of how to visualize suck/swallow ratios and listen for drinking at the breast. Infant was able to maintain latch without discomfort to mother. Nipple care reviewed with optimal latch and good positioning. Reminding mother of comfort measures of healing with a warm and wet washcloth to rinse breast, then leave open to air-dry as needed. Reviewed good handwashing when or touching the breast/nipples to prevent infection. Resources used to facilitate learning were used with the visual handouts, tool, mom and baby guide. Mother voiced understanding of skin to skin, stimulating with massage touch, responsive feedings, hand expressed colostrum, talking to to encourage if it has been 2 -2.5 hours since the start of the last , to call if does not latch, or if there is discomfort with . Resources provided for inpatient/outpatient with the office number on the feeding sheet and the mom/baby guide. Parents voiced understanding of information, demonstrated learning and will call if there is a request for assistance.
[2022-09-14] MEDS: DOCUSATE SODIUM 100 MG CAPSULE PO (16:06)
[2022-09-14] MEDS: IBUPROFEN 600 MG TABLET PO ×2 (16:06→23:10)
[2022-09-14] MEDS: POLYSACCHARIDE IRON COMPLEX 150 MG CAPSULE PO (16:07)
[2022-09-14] MEDS: ACETAMINOPHEN 325 MG TABLET 650 MG PO ×2 (16:07→23:10)
[2022-09-14] MEDS: LANOLIN (LANSINOH) 7.5 GM CREAM 1 APPLIC TOPICAL (16:08)
[2022-09-15 03:40] VITALS: BP 107/62; PULSE 96; RESP 18; TEMP 36.5
[2022-09-15 05:08] LABS: Hematocrit 28.1 % (37.0-47.0); Hemoglobin 9.2 g/dL (12.0-15.0)
[2022-09-15 07:40] VITALS: BP 114/65; PULSE 103; RESP 16; TEMP 37; O2SAT 98
--- NOTE | 2022-09-15 08:52 | PM.OBDSVD ---
DS: Admitting Diagnosis Discharge Date 09/15/2022 Admitting Diagnosis DS: Discharge Diagnosis Discharge Diagnosis (1) , delivered: Code(s): O80 - Encounter for full-term uncomplicated delivery Status: Acute (2) Retained placenta: Code(s): O73.0 - Retained placenta without hemorrhage Status: Acute OB - DS: Summary OB Procedures : None OB Procedures Intrapartum: Spontaneous Vag Delivery and Uterine exploration ( with removal of retained placenta) OB Procedures: : None Time Spent with Patient Time attestation: Total time spent providing and/or coordinating discharge services: DS: Data Data Completed and Pending Pending studies at discharge: Pending at discharge 09/14/22 09:55 Surgical [PTH] Routine Labs on day of discharge: Labs from last 24 hours 09/15/22 09/15/22 09/13/22 03:41 03:41 17:20 Hgb 9.2 L D Hct 28.1 L RPR Non-reactive Blood Type A Negative Antibody Screen TNP Screen Pending Baby's Blood Type Pending Baby's JAMES Pending Doses of RhIg Required Pending Discharge Plan Discharge Discharging Clinician: Mart Villarreal Patient Disposition: Home, Self-Care Activity: as tolerated Diet: as tolerated Patient Instructions: Antibiotic Form Stand Alone Forms: General Discharge Information Follow-up/Referrals: Mart Villarreal MD [Physician] - 3 Weeks Discharge Medications: New ibuprofen 600 mg Tablet 600 mg PO Q6H PRN (Reason: Cramping) Qty: 30 0RF Continued vit-iron fum-folic ac 65 mg iron- 1 mg tablet 1 tablet PO DAILY ferrous sulfate 325 mg (65 mg iron) Tablet,Delayed Release (Dr/Ec) 325 mg PO DAILY Date of admission: 09/13/22 16:49 Primary Care Provider: JoseShayne Admitting Provider: Mart Villarreal Attending physician on admission: Mart Villarreal Condition: Stable
[2022-09-15] MEDS: IBUPROFEN 600 MG TABLET PO (10:05)
[2022-09-15] MEDS: MULTIVIT/MIN/PREN/FOL AC/IRON TABLET 1 TAB PO (10:05)
[2022-09-15] MEDS: DOCUSATE SODIUM 100 MG CAPSULE PO (10:05)
[2022-09-15] MEDS: POLYSACCHARIDE IRON COMPLEX 150 MG CAPSULE PO (10:05)
[2022-09-15] MEDS: RHO(D) IMMUNE GLOBULIN 300 MCG/2 ML SYRINGE IM (11:58)
--- NOTE | 2022-09-15 13:16 | PC.NURSE ---
[id number] Mother led the conversation with her experience and plan to feed her so far and her ability to independently latch optimally without discomfort. Reminded parents to use good handwashing technique to prevent infection. Mother is feeding appropriately for growth of and understands stimulating to eat if needed. Infant has had appropriate feedings in the last 24 hours meets the outcomes for weight, output and jaundice at this time. Mother states she is confident to continue effectively breastfeed her infant at home, when to call for assistance and will call for an assessment of the next breastfeed since is not wanting to attempt at this time. Reinforced understanding of milk production, transition of milk, signs of adequate intake, transition of stool, prevention/relief of engorgement, responsive watching for feeding cues, the different methods of stimulating to breastfeed 2-3 hours after the start of the last feeding, community resources, medication information reviewed per [facility] and when to call a provider using the resource of the mom and baby guide/[facility] website. Mother voiced understanding of the education shared. [id number] Mother demonstrated optimally latching and effectively on the left breast using the football positioning, swallowing heard, visualized and pain or discomfort was denied. Reported to the primary RN.
[2022-09-16 08:23] VITALS: BP 118/73; PULSE 104; RESP 16; TEMP 37.1; O2SAT 100
== END 2022-09-15 12:47 | disposition home or self-care (01) | DRG 806 ==
LOC: ANHLDR 09-14 08:37 → ANHOB2 09-14 14:29
PROVIDERS: Admitting Provider Obstetrics & Gynecology; PCP Nurse Practitioner Family; Visit Provider Obstetrics & Gynecology
DX: O69.81X0 Labor and delivery complicated by cord around neck, without compression, not applicable or unspecified (principal); O72.2 Delayed and secondary postpartum hemorrhage; Z37.0 Single live birth; Z3A.40 40 weeks gestation of pregnancy; O36.8330 Maternal care for abnormalities of the fetal heart rate or rhythm, third trimester, not applicable or unspecified; O70.1 Second degree perineal laceration during delivery; O71.82 Other specified trauma to perineum and vulva
CPT/HCPCS: 36415; 85014; 85018; 85025; 85460; 85461; 86592; 86850; 86880; 86900; 86901; 88307; 90384; A9270; J0690; J2590; J2790; J2795; J7120

== ENCOUNTER 2022-09-23 06:51 | Emergency (ER) | payer BC, SELFPAY ==
[2022-09-23 06:54] VITALS: BP 125/83; PULSE 109; RESP 16; TEMP 36.8; O2SAT 98
--- NOTE | 2022-09-23 07:23 | ED.DENTAL ---
HPI - Dental/Oral General Chief complaint: Dental/Oral Stated complaint: swelling on upper mouth, poss bad tooth Time Seen by Provider: 09/23/22 07:07 History of Present Illness HPI Narrative: Patient is a 22-year-old female who presents to the ER with swelling to the upper left. Left side. She also has what appears to be an abscess above tooth #11. No fevers or chills or sweats. No difficulty breathing or swallowing. Patient is 9 days . She is breast-feeding. Related Data Home Medications Medication Instructions Recorded Confirmed vitamins-iron fumarate 65 1 tablet PO DAILY 03/21/22 09/14/22 mg iron-folic acid 1 mg tablet ferrous sulfate 325 mg (65 mg 325 mg PO DAILY 08/14/22 09/12/22 iron) tablet,delayed release Allergies Allergy/AdvReac Type Severity Reaction Status Date / Time No Known Allergies Allergy Verified 09/23/22 07:03 Review of Systems Constitutional: Constitutional: Denies chills and Denies fever(s) ENT: Denies nasal congestion and Denies sore throat Comments: Dental pain PMFSH Past Medical History Medical History Anxiety Depression Family History Family History Grandparent Hypertension Mother Hypertension Social History Social History Smoking status: Never smoker Alcohol intake: never Substance use: never Substance use type: does not use Lack of Transportation: No Lack of Food: Never True Current Housing: I Have Housing Concerned About Future Housing: No Difficulty Paying Gas/Electric Bills: No Difficulty Paying for Meds: No Currently Unemployed: No Education: High School Diploma/GED Difficulty w/ Childcare or Family Care: No Living arrangements: with family Occupation/Education: occupation 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 HEAD: Normocephalic, atraumatic. ENT: Mucous membranes moist. Mild swelling left upper lip. Nondrainable abscess above tooth 11 NECK: Supple. CHEST: Clear to auscultation. No respiratory distress. HEART: Regular rate and rhythm. No murmur heard. Normal peripheral pulses. NEURO: Alert and oriented x3. PSYCH: Normal mood and affect. Course Course Emergency Course: Discussed treatment plan. Patient verbalized understanding. Patient has a small defect of the gone but does not seem to have enough fluid for drainage. Vital Signs Vital signs: Vital Signs Temperature 98.2 F 09/23/22 06:54 Pulse Rate 109 H 09/23/22 06:54 Respiratory Rate 16 09/23/22 06:54 Blood Pressure 125/83 09/23/22 06:54 Pulse Oximetry 98 09/23/22 06:54 Oxygen Delivery Room Air 09/23/22 06:54 Temperature 98.2 F 09/23/22 06:54 Pulse Rate 109 H 09/23/22 06:54 Respiratory Rate 16 09/23/22 06:54 Blood Pressure 125/83 09/23/22 06:54 Pulse Oximetry 98 09/23/22 06:54 Oxygen Delivery Room Air 09/23/22 06:54 Discharge Plan Discharge Clinical Impression: Abscess, dental Patient Disposition: Home, Self-Care Condition: Stable Instructions: Antibiotic Form, Dental Abscess (ED) Additional Instructions: Return to the ER if you have fever over 100.4 ?F, you cannot keep down food or water, you cannot breathe, you cannot swallow, you have additional concerns. Prescriptions: New amoxicillin-pot clavulanate 875-125 mg tablet 1 tablet PO Q12H Qty: 20 0RF No Action vit-iron fum-folic ac 65 mg iron- 1 mg tablet 1 tablet PO DAILY ferrous sulfate 325 mg (65 mg iron) Tablet,Delayed Release (Dr/Ec) 325 mg PO DAILY ibupr
== END 2022-09-23 08:02 | disposition home or self-care (01) ==
PROVIDERS: Emergency Provider Emergency Medicine; PCP Nurse Practitioner Family
DX: O99.63 Diseases of the digestive system complicating the puerperium (principal); K04.7 Periapical abscess without sinus
CPT/HCPCS: 99283

== ENCOUNTER 2022-12-28 22:56 | Emergency (ER) | payer MEDICAID, SELFPAY ==
[2022-12-28 22:58] VITALS: BP 112/84; PULSE 84; RESP 15; TEMP 36.3; O2SAT 100
--- NOTE | 2022-12-29 00:23 | ED.GENADULT ---
HPI - General Adult General Chief complaint: Dental/Oral <ALEXUS Capps Last Filed: 12/29/22 03:25> Stated complaint: dental pain <ALEXUS Capps Last Filed: 12/29/22 03:25> Time Seen by Provider: 12/28/22 23:07 <ALEXUS Capps Last Filed: 12/29/22 03:25> Source: patient <ALEXUS Capps Last Filed: 12/29/22 03:25> Mode of arrival: ambulatory <ALEXUS Capps Last Filed: 12/29/22 03:25> Limitations: no limitations <ALEXUS Capps Last Filed: 12/29/22 03:25> History of Present Illness HPI narrative: This is a 22-year-old female presents to the ED with chief complaint of left upper dental pain beginning today. She states she has had a history of an abscess in the same spot in the past. She states it was drained by another doctor 1 time and this seemed to help. Denies any fevers, chills, systemic symptoms, sore throat, trismus, drooling. <ALEXUS Capps Last Filed: 12/29/22 03:25> Related Data Allergies/adverse reactions: Allergies Allergy/AdvReac Type Severity Reaction Status Date / Time No Known Allergies Allergy Verified 12/28/22 23:04 <ALEXUS Capps Last Filed: 12/29/22 03:25> Review of Systems Review of Systems: CONSTITUTIONAL: Denies fever, chills, or sweats. EYES: Denies visual changes, redness, or discharge. ENT: See HPI CARDIOVASCULAR: Denies chest pain, palpitations, or edema. RESPIRATORY: Denies cough or dyspnea. GASTROINTESTINAL: Denies abdominal pain, nausea, vomiting, or diarrhea. GENITOURINARY: Denies dysuria or hematuria. SKIN: Denies rash or itching. MUSCULOSKELETAL: Denies back pain, joint pain, or myalgia. NEUROLOGIC: Denies headache, numbness, dizziness, or weakness. PSYCHIATRIC: Denies anxiety or depression. <ALEXUS Capps Last Filed: 12/29/22 03:25> [facility] Past Medical History Medical History: Medical History Anxiety Depression <Ryan Hopkins PA-C - Last Filed: 12/29/22 03:25> Family History Family History: Family History Grandparent Hypertension Mother Hypertension <ALEXUS Capps Last Filed: 12/29/22 03:25> Social History Social History: Social History Smoking status: Never smoker Alcohol intake: never Substance use: never Substance use type: does not use Lack of Transportation: No Lack of Food: Never True Current Housing: I Have Housing Concerned About Future Housing: No Difficulty Paying Gas/Electric Bills: No Difficulty Paying for Meds: No Currently Unemployed: No Education: High School Diploma/GED Difficulty w/ Childcare or Family Care: No Living arrangements: with family Occupation/Education: occupation 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 HEAD: Normocephalic, atraumatic. EYES: PERRLA and EOMI. ENT: Nares clear, no rhinorrhea or epistaxis. Mucous membranes moist. Oropharynx without tonsillar hypertrophy exudate or other lesions. Small area of swelling above the left lateral incisor on the upper teeth. Mildly tender. NECK: Supple. No adenopathy or masses. CHEST: No respiratory distress. Clear to auscultation. No wheezes rales or rhonchi HEART: Regular rate and rhythm. No murmur heard. Normal peripheral pulses. ABDOMEN: Soft, nontender, nondistended, normal active bowel sounds. MSK: Normal range of motion. No edema. SKIN: Warm, dry, no rash. NEURO: Alert and oriented x3. No focal deficits. PSYCH: Normal mood and affec
[2022-12-29] MEDS: AMOXICILLIN/CLAVULANATE K 875-125 MG TAB 1 TABLET PO (00:59)
[2022-12-29 01:01] VITALS: BP 118/68; PULSE 70; RESP 15; O2SAT 100
== END 2022-12-29 01:02 | disposition home or self-care (01) ==
PROVIDERS: Emergency Provider Physician Assistant; PCP Nurse Practitioner Family
DX: K04.7 Periapical abscess without sinus (principal)
CPT/HCPCS: 41800; 99283; A9270

== ENCOUNTER 2023-01-28 22:16 | Emergency (ER) | payer OTHER, SELFPAY ==
[2023-01-28 22:18] VITALS: BP 124/75; PULSE 81; RESP 16; TEMP 36.3; O2SAT 99
[2023-01-28] MEDS: CLINDAMYCIN HCL 150 MG CAP 300 MG PO (22:46)
--- NOTE | 2023-01-28 22:50 | ED.GENADULT ---
HPI - General Adult General Chief complaint: Dental/Oral Stated complaint: dental pain/ear ache Time Seen by Provider: 01/28/23 22:34 History of Present Illness HPI narrative: Patient 23-year-old female presents emergency department with chief complaint of dental pain. Patient reports that she started having pain in her lower molar about 4 to 5 days ago the patient states that she was eating something and felt some irritation in that area the patient reports that she has history of a cracked lower molar and reports that she had multiple dental issues in the past. Related Data Allergies Allergy/AdvReac Type Severity Reaction Status Date / Time No Known Allergies Allergy Verified 01/28/23 22:17 Review of Systems Review of Systems: A 10 system review of systems was completed on the patient and is negative except for what is stated in the HPI. Nursing and ancillary documentation was reviewed. PMFSH Past Medical History Medical History Anxiety Depression Family History Family History Grandparent Hypertension Mother Hypertension Social History Social History Smoking status: Never smoker Alcohol intake: current Alcohol use details: 5 month? Substance use: never Substance use type: does not use Lack of Transportation: No Lack of Food: Never True Current Housing: I Have Housing Concerned About Future Housing: No Difficulty Paying Gas/Electric Bills: No Difficulty Paying for Meds: No Currently Unemployed: No Education: High School Diploma/GED Difficulty w/ Childcare or Family Care: No Living arrangements: with family Additional living arrangements comments: single Occupation/Education: unemployed Gender identity (if verbalized by the patient): Female Sexual Orientation (if Verbalized by the Patient): Straight or Heterosexual Spiritual care concerns: No Exam Narrative: GENERAL: Well-appearing, well-nourished, and in no acute distress. HEAD: Normocephalic, atraumatic. EYES: PERRLA and EOMI. ENT: Nares clear, no rhinorrhea or epistaxis. Mucous membranes moist. Slight fluid behind the tympanic membranes but no erythema there are a dental fracture of the lower mandibular posterior molar NECK: Supple. CHEST: Clear to auscultation. No respiratory distress. HEART: Regular rate and rhythm. No murmur heard. Normal peripheral pulses. ABDOMEN: Soft, nontender, nondistended, normal active bowel sounds. EXTREMITIES: Normal range of motion. No edema. SKIN: Warm, dry, no rash. NEURO: No focal deficits. Alert and oriented x3. PSYCH: Normal mood and affect. Course Vital Signs Vital signs: Vital Signs Temperature 36.3 C L 01/28/23 22:18 Pulse Rate 81 01/28/23 22:18 Respiratory Rate 16 01/28/23 22:18 Blood Pressure 124/75 01/28/23 22:18 Pulse Oximetry 99 01/28/23 22:18 Oxygen Delivery Room Air 01/28/23 22:18 Temperature 36.3 C L 01/28/23 22:18 Pulse Rate 81 01/28/23 22:18 Respiratory Rate 16 01/28/23 22:18 Blood Pressure 124/75 01/28/23 22:18 Pulse Oximetry 99 01/28/23 22:18 Oxygen Delivery Room Air 01/28/23 22:18 Medical Decision Making Vital Signs Vital Signs: Vital Signs Temperature 36.3 C L 01/28/23 22:18 Pulse Rate 81 01/28/23 22:18 Respiratory Rate 16 01/28/23 22:18 Blood Pressure 124/75 01/28/23 22:18 Pulse Oximetry 99 01/28/23 22:18 Oxygen Delivery Room Air 01/28/23 22:18 Temperature 36.3 C L 01/28/23 22:18 Pulse Rate 81 01/28/23 22:18 Respiratory Rate 16 01/28/23 22:18 Blood Pressure 124/75 01/28/23 22:18 Pulse Oximetry 99 01/28/23 22:18 Oxygen Delivery Room Air 01/28/23 22:18 Discharge Plan Discharge Clinical Impression: Dental abscess Patient Disposition: Home, Self
== END 2023-01-28 22:59 | disposition home or self-care (01) ==
PROVIDERS: Emergency Provider Emergency Medicine; PCP Nurse Practitioner Family
DX: K04.7 Periapical abscess without sinus (principal)
CPT/HCPCS: 99283; A9270

== ENCOUNTER 2023-04-07 19:40 | Emergency (ER) | payer OTHER, SELFPAY ==
[2023-04-07 19:43] VITALS: BP 144/77; PULSE 93; RESP 14; TEMP 36.4; O2SAT 98
--- NOTE | 2023-04-07 20:10 | ED.DENTAL ---
HPI - Dental/Oral General Chief complaint: Dental/Oral Stated complaint: SWELLING TO GUMS Time Seen by Provider: 04/07/23 19:52 History of Present Illness HPI Narrative: Patient is a 23-year-old female presenting with a dental abscess. Patient states that she has had several dental abscesses in the last several months. States that she has seen a dentist but they have not gotten back to her. States that she noticed pain and swelling above one of her left upper teeth several days ago. States that it continues to be swollen and painful. She is concerned that she needs more antibiotics. No fevers or chills, difficulty swallowing or breathing, or other systemic symptoms. Related Data Allergies Allergy/AdvReac Type Severity Reaction Status Date / Time No Known Allergies Allergy Verified 01/28/23 22:17 Review of Systems Review of Systems: All systems reviewed & are unremarkable except as noted in HPI and below PMFSH Past Medical History Medical History Anxiety Depression Family History Family History Grandparent Hypertension Mother Hypertension Social History Social History Smoking status: Never smoker Alcohol intake: current Alcohol use details: 5 month? Substance use: never Substance use type: does not use Lack of Transportation: No Lack of Food: Never True Current Housing: I Have Housing Concerned About Future Housing: No Difficulty Paying Gas/Electric Bills: No Difficulty Paying for Meds: No Currently Unemployed: No Education: High School Diploma/GED Difficulty w/ Childcare or Family Care: No Living arrangements: with family Additional living arrangements comments: single Occupation/Education: unemployed Gender identity (if verbalized by the patient): Female Sexual Orientation (if Verbalized by the Patient): Straight or Heterosexual Spiritual care concerns: No Exam Narrative: GENERAL: Well-appearing, well-nourished, and in no acute distress. HEAD: Normocephalic, atraumatic. EYES: PERRLA and EOMI. ENT: 0.5mm periapical abscess tooth 11 NECK: Supple. CHEST: No respiratory distress. HEART: Regular rate and rhythm ABDOMEN: Nondistended EXTREMITIES: Normal range of motion. SKIN: Warm, dry, no rash. NEURO: No focal deficits. Alert and oriented x3. PSYCH: Normal mood and affect. Course Vital Signs Vital signs: Vital Signs Temperature 97.6 F 04/07/23 19:43 Pulse Rate 93 04/07/23 19:43 Respiratory Rate 14 04/07/23 19:43 Blood Pressure 144/77 H 04/07/23 19:43 Pulse Oximetry 98 04/07/23 19:43 Oxygen Delivery Room Air 04/07/23 19:43 Temperature 97.6 F 04/07/23 19:43 Pulse Rate 93 04/07/23 19:43 Respiratory Rate 14 04/07/23 19:43 Blood Pressure 144/77 H 04/07/23 19:43 Pulse Oximetry 98 04/07/23 19:43 Oxygen Delivery Room Air 04/07/23 19:43 Procedures Abscess I/D oral: Date of Incision: 04/07/23 Time of Incision: 20:53 Local Anesthetic: other anesthetic and none (cetacaine spray ) Technique: needle aspiration Amount of fluid expressed (mL): 1 Irrigation: No I&D Results: Pus and Blood Abcess I&D Additional Comments: periapical dental abscess of tooth #11 MDM - Dental/Oral MDM Narrative Medical decision making narrative: Patient is a 23-year-old female presenting with dental abscess. Vitals are stable. Exam remarkable for the above. She does have a superficial periapical abscess affecting tooth 11. Cetacaine spray applied and abscess was needle aspirated. Please see procedure note below for further detail. Tolerated well without complication. Patient received a dose of clindamycin. We will send in for clindamycin as well as ibuprofen and Peridex. Advised that she follow-up closely with he
[2023-04-07] MEDS: CLINDAMYCIN HCL 150 MG CAP 450 MG PO (20:23)
[2023-04-07] MEDS: IBUPROFEN 400 MG TABLET 800 MG PO (20:23)
== END 2023-04-07 21:03 | disposition home or self-care (01) ==
PROVIDERS: Emergency Provider Emergency Medicine; PCP Nurse Practitioner Family
DX: K04.7 Periapical abscess without sinus (principal); F41.9 Anxiety disorder, unspecified; F32.A Depression, unspecified
CPT/HCPCS: 41800; 99283; A9270

== ENCOUNTER 2023-05-14 19:16 | Emergency (ER) | payer OTHER, SELFPAY ==
[2023-05-14 19:31] VITALS: BP 123/80; PULSE 78; RESP 16; TEMP 36.7; O2SAT 100
--- NOTE | 2023-05-14 21:33 | ED.DENTAL ---
HPI - Dental/Oral General Chief complaint: Dental/Oral Stated complaint: tooth pain Time Seen by Provider: 05/14/23 19:55 History of Present Illness HPI Narrative: Patient is a 23-year-old female presenting with dental pain. States that it is one of her right upper molars. States that it seemed to drain a small amount of pus several days ago. She took some ibuprofen which did seem to help. States that she has been treated with antibiotics for dental infections before. States that [facility] and she will schedule follow-up with them. No fevers or chills, difficulty swallowing or breathing. No further complaints. Related Data Allergies Allergy/AdvReac Type Severity Reaction Status Date / Time No Known Allergies Allergy Verified 05/14/23 19:16 Review of Systems Review of Systems: All systems reviewed & are unremarkable except as noted in HPI and below PMFSH Past Medical History Medical History Anxiety Depression Family History Family History Grandparent Hypertension Mother Hypertension Social History Social History Smoking status: Never smoker Alcohol intake: current Alcohol use details: 5 month? Substance use: never Substance use type: does not use Lack of Transportation: No Lack of Food: Never True Current Housing: I Have Housing Concerned About Future Housing: No Difficulty Paying Gas/Electric Bills: No Difficulty Paying for Meds: No Currently Unemployed: No Education: High School Diploma/GED Difficulty w/ Childcare or Family Care: No Living arrangements: with family Additional living arrangements comments: single Occupation/Education: unemployed Gender identity (if verbalized by the patient): Female Sexual Orientation (if Verbalized by the Patient): Straight or Heterosexual Spiritual care concerns: No Exam Narrative: GENERAL: Well-appearing, in no acute distress HEAD: Normocephalic, atraumatic. EYES: PERRLA and EOMI. ENT: Dental caries noted throughout, tooth 2 is tender with palpation, no abscesses appreciated; TMs unremarkable NECK: Supple. CHEST: No respiratory distress. HEART: Regular rate and rhythm ABDOMEN: Nondistended EXTREMITIES: Normal range of motion SKIN: Warm, dry, no rash. NEURO: Alert and oriented x3. PSYCH: Normal mood and affect. Course Vital Signs Vital signs: Vital Signs Temperature 98.1 F 05/14/23 19:31 Pulse Rate 78 05/14/23 19:31 Respiratory Rate 16 05/14/23 19:31 Blood Pressure 123/80 05/14/23 19:31 Pulse Oximetry 100 05/14/23 19:31 Oxygen Delivery Room Air 05/14/23 19:31 Temperature 98.1 F 05/14/23 19:31 Pulse Rate 80 05/14/23 21:45 Respiratory Rate 19 05/14/23 21:45 Blood Pressure 123/87 05/14/23 21:45 Pulse Oximetry 97 05/14/23 21:45 Oxygen Delivery Room Air 05/14/23 19:31 MDM - Dental/Oral MDM Narrative Medical decision making narrative: Patient is a 23-year-old female presenting with dental pain. Vital stable. Exam remarkable for the above. No abscess appreciated that would be amenable to drainage. We will start her on clindamycin and send in for some extra strength ibuprofen. Advise close dental follow-up. Appropriate return precautions given. Discharged in stable condition. Differential Diagnosis Differential diagnosis: Likely dental caries, toothache, dental abscess and fracture of tooth Medical Records Attestation: I reviewed the patient's medical records. Critical Care Time Critical Care Time Critical Care Time: No Discharge Plan Discharge Clinical Impression: Toothache Patient Disposition: Home, Self-Care Condition: Stable Instructions: Antibiotic Form, Toothache (ED) Additional Instructions: Take the antibiotics as prescribed and follow-
[2023-05-14] MEDS: CLINDAMYCIN HCL 150 MG CAP 450 MG PO (21:38)
[2023-05-14 21:45] VITALS: BP 123/87; PULSE 80; RESP 19; O2SAT 97
== END 2023-05-14 21:45 | disposition home or self-care (01) ==
PROVIDERS: Emergency Provider Emergency Medicine; PCP Nurse Practitioner Family
DX: K08.89 Other specified disorders of teeth and supporting structures (principal)
CPT/HCPCS: 99283; A9270

== ENCOUNTER 2023-05-28 16:25 | Emergency (ER) | payer OTHER, SELFPAY ==
[2023-05-28 16:33] VITALS: BP 117/81; PULSE 81; RESP 16; TEMP 37; O2SAT 100
--- NOTE | 2023-05-28 16:43 | ED.DENTAL ---
HPI - Dental/Oral General Chief complaint: Dental/Oral Stated complaint: Dental Pain Time Seen by Provider: 05/28/23 16:35 Source: patient Mode of arrival: ambulatory Limitations: no limitations History of Present Illness HPI Narrative: Patient is a 23-year-old female that presents with left upper dental pain. Patient states she has multiple dental abscesses and is trying to have teeth pulled at [facility]. Patient just finished clindamycin last week. Reports she is using ibuprofen and the Magic mouthwash. Denies any better taste in mouth or facial swelling. Related Data Allergies Allergy/AdvReac Type Severity Reaction Status Date / Time No Known Allergies Allergy Verified 05/14/23 19:16 Review of Systems Review of Systems: All systems reviewed & are unremarkable except as noted in HPI and below Constitutional: Constitutional: Denies body ache(s), Denies fever(s), Denies headache(s), Denies malaise and Denies weakness Eyes: Eyes: Denies loss of vision ENT: Denies otalgia, Reports facial pain (jaw), Denies headache(s), Denies nasal discharge, Denies sinus pain and Denies sore throat Cardiovascular: Cardiovascular: Denies chest pain, Denies irregular heart rhythm and Denies dyspnea Respiratory: Respiratory: Denies dyspnea Gastrointestinal: Gastrointestinal: Denies abdominal pain, Denies melena, Denies hematochezia, Denies diarrhea, Denies nausea and Denies vomiting Musculoskeletal: Musculoskeletal: Denies back pain, Denies myalgias and Denies arthralgias Integumentary/Breasts: Skin/Breast: Denies pruritus and Denies rash Neurologic: Denies headache(s), Denies loss of vision and Denies weakness Psychiatric: Psychiatric: Reports no additional psychiatric complaints PMFSH Past Medical History Medical History Anxiety Depression Family History Family History Grandparent Hypertension Mother Hypertension Social History Social History Smoking status: Never smoker Alcohol intake: current Alcohol use details: 5 month? Substance use: never Substance use type: does not use Lack of Transportation: No Lack of Food: Never True Current Housing: I Have Housing Concerned About Future Housing: No Difficulty Paying Gas/Electric Bills: No Difficulty Paying for Meds: No Currently Unemployed: No Education: High School Diploma/GED Difficulty w/ Childcare or Family Care: No Living arrangements: with family Additional living arrangements comments: single Occupation/Education: unemployed Gender identity (if verbalized by the patient): Female Sexual Orientation (if Verbalized by the Patient): Straight or Heterosexual Spiritual care concerns: No Comments At time of signature, agree with nursing past medical, surgical, social and family history. There is no relevant family history pertinent to the presenting complaint. Exam Const: General: cooperative, healthy appearing, comfortable, no acute distress and well nourished Nutritional Appearance: well nourished Orientation/consciousness: patient oriented x3 Limitations: no limitations HENMT: Head: normal to inspection, normocephalic and atraumatic Ears: hearing grossly normal bilaterally, external ears normal, TM's normal bilaterally and mastoids normal bilaterally Face/Nose/Sinus: Normal external nose present, normal facial exam and face symmetric Face and sinus: normal facial exam and face symmetric Mouth: Yes Normal oral and palatal mucosa present, Yes lip normal, Yes tongue normal, Yes Normal salivary glands and ducts present and Yes moist mucous membranes Teeth image: 1. Erythema to gum and tenderness at tooth root. No drainage. Eyes: General: appearance normal, both eyes and all related structures Alignment and Position: alignment normal and position nor
== END 2023-05-28 17:39 | disposition home or self-care (01) ==
PROVIDERS: Emergency Provider Nurse Practitioner Family; PCP Nurse Practitioner Family
DX: K04.7 Periapical abscess without sinus (principal)
CPT/HCPCS: 99213; G0463

== ENCOUNTER 2023-06-29 08:33 | Emergency (ER) | payer OTHER, SELFPAY ==
[2023-06-29 08:43] VITALS: BP 104/69; PULSE 96; RESP 16; TEMP 37.1; O2SAT 98
--- NOTE | 2023-06-29 09:18 | ED.DENTAL ---
HPI - Dental/Oral General Chief complaint: Dental/Oral Stated complaint: Dental Pain Time Seen by Provider: 06/29/23 09:05 Source: patient and RN notes reviewed Mode of arrival: ambulatory Limitations: no limitations History of Present Illness HPI Narrative: Patient presents today with right lower dental pain since last night. Patient has history of extensive dental caries and abscesses and has been trying to get her teeth taken care of at the [facility]. Currently rates her pain 03/01 and has been taking ibuprofen with mild relief. She was on a course of clindamycin starting 05/14/2023, and a course of Augmentin starting 05/28/2023. Related Data Allergies Allergy/AdvReac Type Severity Reaction Status Date / Time No Known Allergies Allergy Verified 06/29/23 08:43 Review of Systems Review of Systems: CONSTITUTIONAL: Denies body aches, fever, chills, or sweats. EYES: Denies visual changes, redness, or discharge. ENT: Denies rhinorrhea, congestion, sore throat, or otalgia.+ tooth pain CARDIOVASCULAR: Denies chest pain, palpitations, or edema. RESPIRATORY: Denies cough or dyspnea. GASTROINTESTINAL: Denies abdominal pain, nausea, vomiting, or diarrhea. GENITOURINARY: Denies dysuria or hematuria. SKIN: Denies rash, itching, or wounds. MUSCULOSKELETAL: Denies back pain, joint pain, or myalgia. NEUROLOGIC: Denies headache, numbness, tingling, or weakness. PSYCH: Denies depression or anxiety. [facility] Past Medical History Medical History Anxiety Depression Family History Family History Grandparent Hypertension Mother Hypertension Social History Social History Smoking status: Never smoker Alcohol intake: current Alcohol use details: 5 month? Substance use: never Substance use type: does not use Lack of Transportation: No Lack of Food: Never True Current Housing: I Have Housing Concerned About Future Housing: No Difficulty Paying Gas/Electric Bills: No Difficulty Paying for Meds: No Currently Unemployed: No Education: High School Diploma/GED Difficulty w/ Childcare or Family Care: No Living arrangements: with family Additional living arrangements comments: single Occupation/Education: unemployed Gender identity (if verbalized by the patient): Female Sexual Orientation (if Verbalized by the Patient): Straight or Heterosexual Spiritual care concerns: No Comments At time of signature, I have reviewed and agree with nursing past medical, surgical, social and family history unless otherwise noted. Please see nursing chart for further information. There is no relevant family history pertinent to the presenting complaint Exam Narrative: GENERAL: Well-appearing, well-nourished, and in no acute distress. HEAD: Normocephalic, atraumatic. EYES: EOMI. No redness or drainage. Conjunctivae normal. ENT: Mucous membranes pink and moist. +Hole in tooth #31 with mild surrounding gingival erythema. No facial swelling. NECK: Normal AROM. CHEST: No respiratory distress. EXTREMITIES: Normal range of motion. No edema. SKIN: Warm, dry, no rash. Capillary refill normal. Normal skin turgor. NEURO: No focal deficits. Alert and oriented x3. Gait steady. PSYCH: Normal affect. No signs of depression or anxiety. Course Course Level of Care: Express Care Visit Vital Signs Vital signs: Vital Signs Temperature 98.7 F 06/29/23 08:43 Pulse Rate 96 06/29/23 08:43 Respiratory Rate 16 06/29/23 08:43 Blood Pressure 104/69 06/29/23 08:43 Pulse Oximetry 98 06/29/23 08:43 Oxygen Delivery Room Air 06/29/23 08:43 Temperature 98.7 F 06/29/23 08:43 Pulse Rate 96 06/29/23 08:43 Respiratory Rate 16 06/29/23 08:43 Blood Pressure 104/69 06/29/23 08:43 Pulse Oximetry 98
== END 2023-06-29 09:35 | disposition home or self-care (01) ==
PROVIDERS: Emergency Provider Nurse Practitioner; PCP Nurse Practitioner Family
DX: K02.9 Dental caries, unspecified (principal)
CPT/HCPCS: 99213; G0463

== ENCOUNTER 2023-09-12 17:16 | Emergency (ER) | payer OTHER, SELFPAY ==
[2023-09-12 17:24] VITALS: BP 125/83; PULSE 91; RESP 18; TEMP 37.1; O2SAT 100
--- NOTE | 2023-09-12 17:38 | ED.DENTAL ---
HPI - Dental/Oral General Chief complaint: Dental/Oral Stated complaint: Dental Pain Source: patient, RN notes reviewed and old records reviewed Mode of arrival: ambulatory Limitations: no limitations History of Present Illness HPI Narrative: 23-year-old female presents to [facility] complained right upper dental pain that started 2 days ago. Then today woke up with abscess on come in facial swelling. Patient states trying warm salt water and hydrogen peroxide gargles with no relief. Patient states has issues getting into the dentist because of insurance reasons had appointment in July that was canceled by dental office. Related Data Allergies Allergy/AdvReac Type Severity Reaction Status Date / Time No Known Allergies Allergy Verified 09/12/23 17:39 Review of Systems Constitutional: Constitutional: Reports no additional constitutional complaints, Denies body ache(s), Denies chills, Denies fatigue, Denies fever(s) and Denies headache(s) Eyes: Eyes: Reports no additional eye complaints and Denies blurry vision ENT: Reports system reviewed and no additional complaints, except as documented, Reports dental pain, Denies vertigo, Denies dizziness, Denies ear discharge, Denies otalgia, Denies facial pain, Denies headache(s), Denies nasal congestion, Denies nasal discharge, Denies sinus pain, Denies sinus pressure and Denies sore throat Cardiovascular: Cardiovascular: Reports no additional cardiovascular complaints, Denies chest pain, Denies chest pain at rest, Denies rapid heart rate and Denies dyspnea Respiratory: Respiratory: Reports no additional respiratory complaints, Denies chest congestion, Denies cough, Denies pain on inspiration, Denies pain with cough and Denies dyspnea Gastrointestinal: Gastrointestinal: Denies abdominal pain, Denies diarrhea, Denies nausea and Denies vomiting Integumentary/Breasts: Skin/Breast: Denies rash Neurologic: Reports system reviewed and no additional complaints, except as documented, Denies vertigo, Denies dizziness and Denies headache(s) Endocrine: Endocrine: Denies fatigue PMFSH Past Medical History Medical History Anxiety Depression Family History Family History Grandparent Hypertension Mother Hypertension Social History Social History Smoking status: Never smoker Alcohol intake: current Alcohol use details: 5 month? Substance use: never Substance use type: does not use Lack of Transportation: No Lack of Food: Never True Current Housing: I Have Housing Concerned About Future Housing: No Difficulty Paying Gas/Electric Bills: No Difficulty Paying for Meds: No Currently Unemployed: No Education: High School Diploma/GED Difficulty w/ Childcare or Family Care: No Living arrangements: with family Additional living arrangements comments: single Occupation/Education: unemployed Gender identity (if verbalized by the patient): Female Sexual Orientation (if Verbalized by the Patient): Straight or Heterosexual Spiritual care concerns: No Comments At the time of my signature, I reviewed and agree with the nursing past medical, surgical, social, and family history. There is no relevant family history pertinent to the patient complaint. Exam Const: General: cooperative, healthy appearing, no acute distress and well nourished Nutritional Appearance: well nourished Orientation/consciousness: patient oriented x3 Limitations: no limitations HENMT: Head: normal to inspection and normocephalic Ears: external ears normal and mastoids normal Face/Nose/Sinus: normal facial exam Face and sinus: normal facial exam Mouth: Yes Normal oral and palatal mucosa present, Yes oropharynx normal and Yes moist mucous membranes Teeth and gingiva: gingiva abnormal edematous, with purulent discharge an
== END 2023-09-12 17:45 | disposition home or self-care (01) ==
PROVIDERS: Emergency Provider Registered Nurse; PCP Nurse Practitioner Family
DX: K04.7 Periapical abscess without sinus (principal)
CPT/HCPCS: 99213; G0463

== ENCOUNTER 2024-01-17 08:59 | Emergency (ER) | payer OTHER, SELFPAY ==
--- NOTE | 2024-01-17 09:14 | ED.URI ---
HPI - URI/Sore Throat General Chief Complaint: Upper Respiratory Infection Stated Complaint: cough with mucus,right ear pain,rt side tooth pain Time Seen by Provider: 01/17/24 09:14 Source: patient Mode of arrival: ambulatory Limitations: no limitations History of Present Illness HPI Narrative: Cindy is a 24-year-old female patient presenting to the clinic today with complaints of of cough, right ear pain, and right side dental pain. She reports symptoms started approximately 4-5 days ago. She denies any known fever but has had some chills and body aches. Is concerned about a possible dental abscess to the right upper gum. MD elicited complaint: sore throat and nasal congestion Related Data Allergies Allergy/AdvReac Type Severity Reaction Status Date / Time No Known Allergies Allergy Verified 01/17/24 09:17 Review of Systems Review of Systems: Pertinent positives per HPI. Patient denies any fever, rash, headache, visual changes, dizziness, shortness of breath, chest pain, palpitations, nausea, vomiting, diarrhea, constipation, abdominal pain, or any urinary issues. PMFSH Past Medical History Medical History Anxiety Depression Family History Family History Grandparent Hypertension Mother Hypertension Social History Social History Smoking status: Never smoker Alcohol intake: current Alcohol use details: 5 month? Substance use: never Substance use type: does not use Lack of Transportation: No Lack of Food: Never True Current Housing: I Have Housing Concerned About Future Housing: No Difficulty Paying Gas/Electric Bills: No Difficulty Paying for Meds: No Currently Unemployed: No Education: High School Diploma/GED Difficulty w/ Childcare or Family Care: No Living arrangements: with family Additional living arrangements comments: single Occupation/Education: unemployed Gender identity (if verbalized by the patient): Female Sexual Orientation (if Verbalized by the Patient): Straight or Heterosexual Spiritual care concerns: No Comments At the time of my signature, I reviewed and agree with the nursing past medical, surgical, social, and family history. There is no relevant family history pertinent to the patient complaint. Exam Narrative: General: Well-developed, well nourished, in no apparent distress Head: Normocephalic, atraumatic Eyes: Pupils equally round and reactive to light bilaterally, EOM intact, sclera and conjunctive clear, no discharge, lids normal Ears: TMs intact and clear, ear canals clear, no drainage, grossly hearing normal. Nose: Nares patent, clear nasal discharge, no inflammation, no sinus tenderness. Mouth: Oral pharynx red with bilateral tonsillar enlargement and exudate to the right tonsil, without lesions or masses, good dentition, MMM. Small fluctuant dental abscess to the right upper cuspid Neck: Supple, trachea midline, mild enlargement of anterior cervical nodes, no thyroid masses or goiter palpable. Cardio: Regular rate and rhythm, s1 and s2 normal, no murmur appreciated. Resp: Clear to auscultation bilaterally, no rhonchi, rales, wheezing or rubs Course Course Emergency Course: Portions of this record may have been created with voice recognition software. Level of Care: Express Care Visit Vital Signs Vital signs: Vital Signs Temperature 36.4 C 01/17/24 09:24 Pulse Rate 87 01/17/24 09:24 Respiratory Rate 16 01/17/24 09:24 Blood Pressure 116/72 01/17/24 09:24 Pulse Oximetry 97 01/17/24 09:24 Oxygen Delivery Room Air 01/17/24 09:24 Temperature 36.4 C 01/17/24 09:24 Pulse Rate 87 01/17/24 09:24 Respiratory Rate 16 01/17/24 09:24 Blood Pressure 116/72 01/17/24 09:24 Pulse Oximetry 97 01/17/24 09:24 Oxygen Del
[2024-01-17 09:24] VITALS: BP 116/72; PULSE 87; RESP 16; TEMP 36.4; O2SAT 97
== END 2024-01-17 09:50 | disposition home or self-care (01) ==
PROVIDERS: Emergency Provider Nurse Practitioner Family; PCP Nurse Practitioner Family
DX: K04.7 Periapical abscess without sinus (principal); J02.9 Acute pharyngitis, unspecified; J06.9 Acute upper respiratory infection, unspecified; Z20.822 Contact with and (suspected) exposure to COVID-19
CPT/HCPCS: 87426; 87804; 87880; 99213; G0463

== ENCOUNTER 2024-08-13 19:24 | Emergency (ER) | payer MEDICAID, SELFPAY ==
--- NOTE | ~2024-08-13 | XR_ITS ---
CHEST RADIOGRAPH CLINICAL HISTORY: CP . COMPARISON: 04/03/2019 TECHNIQUE: Single portable view of the chest. FINDINGS The cardiomediastinal silhouette is unremarkable. The lungs are clear. Visualized osseous structures and soft tissues are unremarkable. IMPRESSION: No focal infiltrate or effusion. Reviewed, dictated and finalized at location [facility]
[2024-08-13 19:30] VITALS: BP 136/86; PULSE 88; RESP 15; TEMP 36.6; O2SAT 100
[2024-08-13 19:39] VITALS: O2SAT 100
--- NOTE | 2024-08-13 19:48 | ED_ITS ---
HPI - URI/Sore Throat General Chief Complaint: Upper Respiratory Infection Stated Complaint: Chest discomfort x 2 days- has flu Time Seen by Provider: 08/13/24 19:36 Source: patient Mode of arrival: ambulatory Limitations: no limitations History of Present Illness HPI Narrative: This is a 24 year old female that presents to the ER for intermittent chest pain. Ongoing over the last 2 days. Noticed this after mopping yesterday and carrying some groceries. She is currently about 5 weeks . Will be seeing Dr. Villarreal next month for her . Reports some congestion. Her is currently positive for influenza. Denies fever, cough, shortness of breath. Related Data Allergies Allergy/AdvReac Type Severity Reaction Status Date / Time No Known Allergies Allergy Verified 08/13/24 19:26 Review of Systems 2 Review of Systems: CONSTITUTIONAL: Denies fever ENT: Reports congestion. Denies sore throat CARDIOVASCULAR: Reports chest pain. Denies edema. RESPIRATORY: Denies cough or dyspnea. All systems reviewed & are unremarkable except as noted in HPI and below PMFSH Past Medical History Medical History Anxiety Depression Family History Family History Grandparent Hypertension Mother Hypertension Social History Social History (Updated 06/10/24 @ 15:03 by RODGER Fajardo) Smoking status: Never smoker Second hand tobacco smoke exposure: No Alcohol intake: former Alcohol use details: 5 month? Substance use: never Substance use type: does not use Do You Feel Safe in your Home?: Yes Lack of Transportation: No Lack of Food: Never True Current Housing: I Have Housing Concerned About Future Housing: No Difficulty Paying Gas/Electric Bills: No Difficulty Paying for Meds: No Currently Unemployed: No Education: High School Diploma/GED Difficulty w/ Childcare or Family Care: No Living arrangements: with family Additional living arrangements comments: Occupation/Education: occupation Additional occupation/education comments: patient access Gender identity (if verbalized by the patient): Female Sexual Orientation (if Verbalized by the Patient): Straight or Heterosexual Spiritual care concerns: No Exam 2 Narrative: GENERAL: Well-appearing, well-nourished, and in no acute distress. HEAD: Normocephalic, atraumatic. EYES: EOMI. ENT: Nares clear, no rhinorrhea or epistaxis. Mucous membranes moist. Oropharynx without tonsillar hypertrophy exudate or other lesions. Bilateral TMs pearly dominguez non-bulging NECK: Supple. No adenopathy or masses. CHEST: Clear to auscultation. No respiratory distress. No wheezes rales or rhonchi HEART: Regular rate and rhythm. No murmur heard. Normal peripheral pulses. EXTREMITIES: Normal range of motion. No edema. SKIN: Warm, dry, no rash. NEURO: No focal deficits. Alert and oriented x3. PSYCH: Normal mood and affect Course Course Emergency Course: patient updated on her workup and agrees with plan of care Vital Signs Vital signs: Vital Signs Temperature 98 F 08/13/24 19:30 Pulse Rate 88 08/13/24 19:30 Respiratory Rate 15 08/13/24 19:30 Blood Pressure 136/86 08/13/24 19:30 Pulse Oximetry 100 08/13/24 19:30 Oxygen Delivery Room Air 08/13/24 19:30 Temperature 98 F 08/13/24 19:30 Pulse Rate 88 08/13/24 19:30 Respiratory Rate 15 08/13/24 19:30 Blood Pressure 136/86 08/13/24 19:30 Pulse Oximetry 100 08/13/24 19:39 Oxygen Delivery Room Air 08/13/24 19:39 MDM - URI/Sore Throat MDM Narrative Medical decision making narrative: Patient presents to the emergency department for chest pain, congestion. Her recently tested positive for influenza. Patient is currently about 5 weeks . She is afebrile and nontoxic appearing. Her vitals are stable. Oxygen saturation is normal on room air. Cbc metabolic panel without concerning findings. EKG without acute ST changes and baseline troponin is negative. Influenza, RSV and COVID screens are negative. Chest x-ray without acute findings. Her heart score is 1. Will start her on Tamiflu prophylactically. Patient is not endorsing any current bleeding. Quantitative beta HCG 12,188. She has her 1st OB visit soon. She is to follow up with her OB. She was given warnings to return to the ER Differential Diagnosis Differential diagnosis: Likely upper respiratory infection, sinusitis, viral infection, bronchitis, influenza and other (pneumonia, muscle strain) Lab Data Attestation: I reviewed the patient's lab results. 08/13/24 19:55 08/13/24 19:55 Labs: Lab Results 08/13/24 08/13/24 Range/Units 19:38 19:55 WBC 6.8 (4.5-10.0) K/mm3 RBC 4.74 (4.2-5.4) M/mm3 Hgb 12.8 D (12.0-15.0) g/dL Hct 38.0 (37.0-47.0) % MCV 80.2 (80-100) fl MCH 27.0 (26-34) pg MCHC 33.7 (32-36) g/dl RDW 11.8 (11.5-14.5) % Plt Count 203 D (150-375) k/mm3 MPV 11.9 H (7.4-10.4) fl Immature Gran % (Auto) 0.1 (0-0.5) % Neut % (Auto) 64.0 (45.5-73.1) % Lymph % (Auto) 27.8 (18.3-44.2) % [facility] % (Auto) 5.6 (2.6-8.5) % Eos % (Auto) 1.8 (0-4.4) % Baso % (Auto) 0.7 (0.2-1.2) % Lymph # (Auto) 1.90 (0.9-3.2) K/mm3 [facility] # (Auto) 0.4 (0.1-0.6) K/mm3 Eos # (Auto) 0.1 (0-0.3) K/mm3 Baso # (Auto) 0.1 (0.0-0.1) K/mm3 Abs Immat Gran (auto) 0.01 (0.00-0.031) K/mm3 Absolute Neuts (auto) 4.4 (1.3-6.7) K/mm3 Absolute Nucleated RBC 0.000 (0.0-0.012) K/mm3 Nucleated RBC % 0.0 (0.0-0.2) % Sodium 138 (137-145) mmol/L Potassium 3.5 (3.4-5.0) mmol/L Chloride 103 (98-107) mmol/L Carbon Dioxide 24 (22-30) mmol/L Anion Gap 11 (4-12) mmol/L BUN 10 D (7-17) mg/dL Creatinine 0.48 L (0.7-1.0) mg/dL Estim Creat Clear Calc 138 ml/min Estimated GFR > 60 (59 - ) Glucose 95 (65-110) mg/dL Calcium 9.6 (8.4-10.2) mg/dL Total Bilirubin 0.6 (0.2-1.3) mg/dL AST 17 (14-36) U/L ALT 13 (6-35) U/L Alkaline Phosphatase 49 (38-126) U/L Troponin I < 0.012 (0.000-0.034) ng/mL Total Protein 8.0 (6.3-8.2) g/dL Albumin 4.8 (3.5-5.1) g/dL Beta HCG, Quant 90845.00 mIU/ML Influenza A (RT-PCR) Negative (Negative) Influenza B (RT-PCR) Negative (Negative) RSV (RT-PCR) Negative (Negative) SARS-CoV-2 RNA (RT-PCR) Negative (Negative) Imaging Data Radiologist's impression: ITS Impressions Chest X-Ray 08/13/24 20:59 IMPRESSION: No focal infiltrate or effusion. ECG Data EKG #1: ECG completion date: 08/13/24 EKG Interpretation: normal rate, sinus rhythm, non-specific ST changes and normal QT Critical Care Time Critical Care Time Critical Care Time: No Discharge Plan Discharge Clinical Impression: Chest pain Qualifiers: Chest pain type: unspecified Qualified Code(s): R07.9 - Chest pain, unspecified Qualifiers: Weeks of gestation: less than 8 weeks Qualified Code(s): Z3A.01 - Less than 8 weeks gestation of Patient Disposition: Home, Self-Care Condition: Stable Instructions: Chest Pain (ED), (ED) Additional Instructions: Return to the emergency department if you experience fever, worsening chest pain, shortness of breath, abdominal pain with nausea and vomiting, vaginal bleeding, or any other symptoms that are concerning to you. Your blood work, EKG and imaging are re-assuring today. We are starting you on Oseltamivir (Tamiflu) to help prevent you from getting the flu since you are . Remain well hydrated. Tylenol as needed for discomfort. Continue vitamin daily Follow up with your svp research and strategic analysis Patient Language: French Prescriptions: New oseltamivir 75 mg capsule 75 mg PO DAILY 7 Days Qty: 7 0RF Follow-up/Referrals: Mart Villarreal MD [Physician] - PHYSICIAN,LEVEL VIAL INSPECTOR [Primary Care Provider] - Quality HEART score for chest pain patients History: slightly suspicious ECG: non specific repolarization disturbance/LBTB/PM Age: < or = to 45 years Risk factors: no risk factors known Troponin: < or = to 1x normal limit Heart score: 1
[2024-08-13 20:01] LABS: Basophils Absolute Auto 0.1 K/mm3 (0.0-0.1); Basophils Percent Auto 0.7 % (0.2-1.2); Eosinophils Absolute Auto 0.1 K/mm3 (0-0.3); Eosinophils Percent Auto 1.8 % (0-4.4); Hemoglobin 12.8 g/dL (12.0-15.0); Immature Granulocyte Absolute 0.01 K/mm3 (0.00-0.031); Immature Granulocyte Percent A 0.1 % (0-0.5); Lymphocytes Percent Auto 27.8 % (18.3-44.2); Mean Corpuscular HGB Conc 33.7 g/dl (32-36); Mean Corpuscular Volume 80.2 fl (80-100); Mean Platelet Volume 11.9 fl (7.4-10.4); Monocytes Absolute Auto 0.4 K/mm3 (0.1-0.6); Monocytes Percent Auto 5.6 % (2.6-8.5); Neutrophils Absolute Auto 4.4 K/mm3 (1.3-6.7); Platelet Count Result 203 k/mm3 (150-375); Red Blood Count 4.74 M/mm3 (4.2-5.4); Red Cell Distribution Width 11.8 % (11.5-14.5); White Blood Count 6.8 K/mm3 (4.5-10.0)
[2024-08-13 20:15] LABS: Alanine Aminotransferase 13 U/L (6-35); Albumin Level 4.8 g/dL (3.5-5.1); Alkaline Phosphatase 49 U/L (38-126); Anion Gap 11 mmol/L (4-12); Aspartate Amino Transferase 17 U/L (14-36); Bilirubin,Total 0.6 mg/dL (0.2-1.3); Blood Urea Nitrogen 10 mg/dL (7-17); Calcium 9.6 mg/dL (8.4-10.2); Carbon Dioxide 24 mmol/L (22-30); Chloride 103 mmol/L (98-107); Estimated CRCL calculation 138 ml/min; Estimated Glomerular Filt Rate > 60; Glucose 95 mg/dL (65-110); Potassium 3.5 mmol/L (3.4-5.0); Sodium 138 mmol/L (137-145)
[2024-08-13 20:19] LABS: Influenza A QL RT-PCR Negative (Negative); Influenza B QL RT-PCR Negative (Negative); RSV RNA, RT-PCR Negative (Negative); SARS-CoV-2 RNA PCR Negative (Negative)
[2024-08-13 20:26] LABS: Troponin I < 0.012 ng/mL (0.000-0.034)
[2024-08-13] MEDS: ACETAMINOPHEN 500 MG TABLET 1000 MG PO (20:54)
[2024-08-13 22:10] VITALS: BP 118/78; PULSE 85; RESP 18; O2SAT 100
== END 2024-08-13 22:11 | disposition home or self-care (01) ==
PROVIDERS: Emergency Medicine; Emergency Provider Physician Assistant
DX: O26.891 Other specified pregnancy related conditions, first trimester (principal); R07.9 Chest pain, unspecified; Z20.822 Contact with and (suspected) exposure to COVID-19; Z3A.01 Less than 8 weeks gestation of pregnancy; O99.411 Diseases of the circulatory system complicating pregnancy, first trimester; I45.10 Unspecified right bundle-branch block; R94.31 Abnormal electrocardiogram [ECG] [EKG]
CPT/HCPCS: 36415; 71045; 80053; 84484; 84702; 85025; 87637; 93005; 99284; A9270

== ENCOUNTER 2024-09-12 14:52 | Outpatient (CLI) | payer MEDICAID, SELFPAY ==
--- NOTE | ~2024-09-12 | US_ITS ---
EXAMINATION: US OB <=14 wk fetus w TV DATE: 09/12/2024 15:24 INDICATION: Encounter for supervision of normal during first trimester. TECHNIQUE: Real-time pelvic ultrasound utilizing both a transvaginal and transabdominal probe was pe rformed. The interpreting radiologist was not present for the study. COMPARISON: None. FINDINGS: The uterus measures 10.6 x 7.6 x 9.1 cm. There is an intrauterine gestational sac. A yolk sac and fe herlinda pole are identified. The crown rump length measures 3.0 cm, which correlates with an estimated ge stational age of 10 weeks and 0 days. heart motion is identified measuring 181 beats per minute (bpm) by M-mode Doppler. 3.0 x 0.7 x 2.5 cm anechoic subchorionic hematoma at the margin of the gest ational sac. The right ovary measures 2.2 x 1.9 x 1.4 cm. The left ovary measures 3.4 x 2.6 x 1.8 cm. There is no free fluid in the pelvis. IMPRESSION: 1. Single living fetus with heart rate of 181 bpm. 2. Gestational age by ultrasound of 10 weeks 0 day(s) +/- 6 day(s) with ultrasound estimated date of delivery (GERALD) of 04/10/2025. 3. Small subchorionic hematoma. Reviewed, dictated and finalized at location A. HAUL TRUCK DRIVER IMPRESSION: 1. Single living fetus with heart rate of 181 bpm. 2. Gestational age by ultrasound of 10 weeks 0 day(s) +/- 6 day(s) with ultras ound estimated date of delivery (GERALD) of 04/10/2025. 3. Small subchorionic hematoma.
== END 2024-09-12 14:53 | disposition home or self-care (01) ==
LOC: MICIMG 14:55
PROVIDERS: PCP Obstetrics & Gynecology; Visit Provider Obstetrics & Gynecology
DX: Z34.91 Encounter for supervision of normal pregnancy, unspecified, first trimester (principal); Z3A.10 10 weeks gestation of pregnancy
CPT/HCPCS: 76801; 76817

== ENCOUNTER 2024-09-17 15:11 | Outpatient (CLI) | payer MEDICAID, SELFPAY ==
[2024-09-17 16:05] LABS: Hematocrit 35.6 % (37.0-47.0); Hemoglobin 11.8 g/dL (12.0-15.0); Mean Corpuscular HGB Conc 33.1 g/dl (32-36); Mean Corpuscular Hemoglobin 26.8 pg (26-34); Mean Corpuscular Volume 80.7 fl (80-100); Mean Platelet Volume 12.2 fl (7.4-10.4); Platelet Count Result 189 k/mm3 (150-375); Red Blood Count 4.41 M/mm3 (4.2-5.4); Red Cell Distribution Width 12.6 % (11.5-14.5); White Blood Count 7.6 K/mm3 (4.5-10.0)
[2024-09-17 16:55] LABS: Hepatitis B Surface Antigen Negative (Negative); Rubella IgG Antibody 36.5 IU/ML
[2024-09-17 17:03] LABS: HIV 1/2 Ab P24 Ag Result Negative (Negative)
[2024-09-17 17:26] LABS: Syphilis IgG/IgM Antibody Negative (Negative)
--- OUTSIDE RECORDS SUMMARY | 2024-09-17 17:32 | XMS_ITS | Clinical Summary ---
Author Organization [facility] Care Team Providers Care Gas Engine Performance Engineer Name Role Phone Unavailable Primary Care Provider Unavailabl e Social History Tobacco Use Types Packs/Day Years Used Date Smoking Tobacco: Never Assessed Comments Unknown Sex and Gender Information Value Date Recorded Sex Assigned at Not on file Legal Sex Female 8:02 AM CDT Gender Identity Not on file Sexual Orientation Not on file Plan of Treatment Health Maintenance Due Date Last Done Comments Hepatitis C Virus (HCV) Screening 1998 Pap Smear 2019 Influenza Immunization (#1) 2024 SARS-COV-2 Immunization ( season) 2024 Respiratory Syncytial Virus (RSV) Immunization (Adult) (1 - 1-dose 75+ series) 2073 Hepatitis B Immunization Completed 999, 1998, 1998, Additional history exists DTaP/Tdap/Td Immunization Discontinued 2011, 07/26/2008, 01/12/2003, Additional history exists TdaP Immunization Completed 02/27/2012 Meningococcal Immunization (ACWY) Completed 06/21/2015, 03/30/2014 Human Papillomavirus (HPV) Immunization Completed 07/10/2016, 03/03/2016, 12/24/2015 Pneumococcal Immunization Combined Aged Out No longer eligible based on patient's age to complete this topic Rotavirus Immunization Aged Out No lo nger eligible based on patient's age to complete this topic
[2024-09-18 07:19] LABS: CMV IgG Antibody >10.00 U/mL; Varicella IgG Antibody <1.00 S/CO
== END 2024-09-17 15:12 | disposition home or self-care (01) ==
LOC: ANHLAB 15:12
PROVIDERS: Visit Provider Obstetrics & Gynecology
DX: N91.2 Amenorrhea, unspecified (principal)
CPT/HCPCS: 36415; 84702; 85027; 86593; 86644; 86703; 86747; 86762; 86787; 86850; 86900; 86901; 87086; 87340; G0432

== ENCOUNTER 2024-10-13 13:25 | Outpatient (CLI) | payer OTHER, SELFPAY ==
--- NOTE | ~2024-10-13 | US_ITS ---
EXAMINATION: US OB <= 14 weeks fetus DATE: 10/13/2024 14:30 INDICATION: Other specified disorders of amniotic fluid at the transition from the first of the secon d trimester of TECHNIQUE: Real-time pelvic ultrasound utilizing both a transvaginal and transabdominal probe was pe rformed. The interpreting radiologist was not present for the study. COMPARISON: None. FINDINGS: The uterus measures 15.3 x 8.8 x 11.3 cm. Cervical length measures 3.7 cm which is normal with caudal margin approximately 2.5 cm from the internal cervical os. Prior subchorionic lymphoma, no longer vi sualized. There is an intrauterine gestational sac. A yolk sac and pole are identified. The field crop harvest worker wn rump length measures 8.7 cm, which correlates with an estimated gestational age of 14 weeks and 4 days. heart motion is identified measuring 148 beats per minute (bpm) by M-mode Doppler. Amniot ic fluid volume is subjectively normal. The ovaries are not visualized. There is no free fluid in the pelvis. IMPRESSION: 1. Single living fetus with heart rate of 148 bpm. 2. Gestational age by ultrasound of 14 weeks 4 day(s) +/- 1 week and 2 days with ultrasound estimate d date of delivery (GERALD) of 04/09/2025. No fracture. Anterior placenta with caudal margin approximatel y 2.5 cm from the internal cervical os. No evident subchorionic hematoma. Reviewed, dictated and finalized at location B. IMPRESSION: 1. Single living fetus with heart rate of 148 bpm. 2. Gestational age by ultrasound of 14 weeks 4 day(s) +/- 1 week and 2 days wi th ultrasound estimated date of delivery (GERALD) of 04/09/2025. No fracture. Anter ior placenta with caudal margin approximately 2.5 cm from the internal cervical os. No evident subchorionic hematoma.
--- OUTSIDE RECORDS SUMMARY | 2024-10-13 15:24 | XMS_ITS | Clinical Summary ---
Author Organization [facility] Care Team Providers Care Indexer Name Role Phone Unavailable Primary Care Provider [...]
== END 2024-10-13 13:26 | disposition home or self-care (01) ==
PROVIDERS: Visit Provider Obstetrics & Gynecology
DX: O41.8X90 Other specified disorders of amniotic fluid and membranes, unspecified trimester, not applicable or unspecified (principal); Z3A.14 14 weeks gestation of pregnancy
CPT/HCPCS: 76801

== ENCOUNTER 2025-01-15 10:31 | Outpatient (CLI) | payer OTHER, SELFPAY ==
[2025-01-15 12:08] LABS: Basophils Percent Auto 0.4 % (0.2-1.2); Eosinophils Absolute Auto 0.1 K/mm3 (0-0.3); Eosinophils Percent Auto 1.7 % (0-4.4); Hematocrit 30.7 % (37.0-47.0); Hemoglobin 9.6 g/dL (12.0-15.0); Immature Granulocyte Absolute 0.14 K/mm3 (0.00-0.031); Lymphocytes Absolute Auto 1.08 K/mm3 (0.9-3.2); Lymphocytes Percent Auto 15.2 % (18.3-44.2); Mean Corpuscular HGB Conc 31.3 g/dl (32-36); Mean Corpuscular Hemoglobin 24.1 pg (26-34); Mean Corpuscular Volume 77.1 fl (80-100); Mean Platelet Volume 12.6 fl (7.4-10.4); Monocytes Absolute Auto 0.5 K/mm3 (0.1-0.6); Monocytes Percent Auto 6.5 % (2.6-8.5); Neutrophils Absolute Auto 5.3 K/mm3 (1.3-6.7); Neutrophils Percent Auto 74.2 % (45.5-73.1); Platelet Count Result 170 k/mm3 (150-375); Red Blood Count 3.98 M/mm3 (4.2-5.4); Red Cell Distribution Width 14.2 % (11.5-14.5); White Blood Count 7.1 K/mm3 (4.5-10.0)
[2025-01-15 12:53] LABS: Glucose 1 Hour PP 50gm Dose 89 mg/dL
[2025-01-15 13:34] LABS: HIV 1/2 Ab P24 Ag Result Negative (Negative)
[2025-01-15] MEDS: RHO(D) IMMUNE GLOBULIN 300 MCG/2 ML SYRINGE IM (15:40)
[2025-01-15 16:49] LABS: Syphilis IgG/IgM Antibody Non-Reactive (Nonreactive)
== END 2025-01-15 10:32 | disposition home or self-care (01) ==
LOC: ANHLAB 10:33
PROVIDERS: Visit Provider Obstetrics & Gynecology
DX: Z34.90 Encounter for supervision of normal pregnancy, unspecified, unspecified trimester (principal); Z3A.00 Weeks of gestation of pregnancy not specified
CPT/HCPCS: 36415; 82947; 85025; 85461; 86593; 86703; 86850; 86900; 86901; 90384; 96372; G0432; J2790

== ENCOUNTER 2025-01-26 14:47 | Emergency (ER) | payer OTHER, SELFPAY ==
[2025-01-26 14:54] VITALS: BP 113/73; PULSE 89; RESP 14; TEMP 36.9; O2SAT 100
--- NOTE | 2025-01-26 15:04 | ED_ITS ---
HPI - Dental/Oral General Chief complaint: Dental/Oral Stated complaint: Toothache Time Seen by Provider: 01/26/25 15:04 Mode of arrival: ambulatory Limitations: no limitations History of Present Illness HPI Narrative: 25-year-old female who is 30 weeks presents with concern for right lower dental pain. She reports the tooth his had a cracked filling for some time and has a ?hole? in it. She reports she feels a little bump in her gum near the affected tooth. She denies fever, problems swallowing. MD Complaint: tooth pain Related Data Home Medications ?Medication ?Instructions ?Recorded ?Confirmed ?Last Taken ?Type vitamin#30 30 mg iron-10 cap PO 09/03/24 01/19/25 Unknown History mg iron-folic acid 1 mg-omg3 capsule aspirin 81 mg tablet,delayed 81 mg PO DAILY 12/31/24 01/19/25 Unknown History release (Adult Low Dose Aspirin) ferrous sulfate 325 mg (65 mg 325 mg PO BID 01/19/25 01/19/25 Unknown History iron) tablet Allergies Allergy/AdvReac Type Severity Reaction Status Date / Time No Known Allergies Allergy Verified 01/26/25 14:58 Review of Systems Review of Systems: CONSTITUTIONAL: Denies malaise, chills, sweats, or fever. EYES: Denies visual changes ENT: Denies rhinorrhea, congestion, sinus pain, otalgia or sore throat. Reports right lower dental pain CARDIOVASCULAR: Denies chest pain, palpitations RESPIRATORY: Denies cough or dyspnea. SKIN: Denies rash or itching. MUSCULOSKELETAL: Denies myalgia. NEUROLOGIC: Denies numbness, weakness, or headache. All systems reviewed & are unremarkable except as noted in HPI and below PMFSH Past Medical History Medical History Depression Anxiety Family History Family History Grandparent Hypertension Mother Hypertension Social History Social History Smoking status: Never smoker Second hand tobacco smoke exposure: No Alcohol intake: former Alcohol use details: 5 month? Substance use: never Substance use type: does not use Do You Feel Safe in your Home?: Yes Lack of Transportation: No Lack of Food: Never True Current Housing: I Have Housing Concerned About Future Housing: No Difficulty Paying Gas/Electric Bills: No Difficulty Paying for Meds: No Currently Unemployed: No Education: High School Diploma/GED Difficulty w/ Childcare or Family Care: No Living arrangements: with family Additional living arrangements comments: Occupation/Education: occupation Additional occupation/education comments: patient access Gender identity (if verbalized by the patient): Female Sexual Orientation (if Verbalized by the Patient): Straight or Heterosexual Spiritual care concerns: No Comments At time of signature, agree with nursing past medical, surgical, social and family history. There is no relevant family history pertinent to the presenting complaint Exam Narrative: GENERAL: Well-appearing, well-nourished, and in no acute distress. HEAD: Normocephalic, atraumatic. EYES: PERRLA, sclera clear ENT: Nares clear. Mucous membranes moist. Oropharynx without erythema or lesions. Tonsils not enlarged and without exudate. Broken teeth, caries noted,. Periapical abscess noted beneath #30 NECK: Supple. No lymphadenopathy. CHEST: No respiratory distress. Speaks in full sentences. HEART: Regular rate and rhythm. SKIN: Warm, dry, no visible rash. NEURO: Alert and oriented x3. PSYCH: Normal mood and affect Course Course Emergency Course: Patient is aware of diagnosis, understands and agrees to treatment plan. Anticipatory guidance given. Patient agrees to follow-up as directed and is a puckett of reasons to seek care at the emergency department. Portions of this record may have been created with voice recognition software Level of Care: Express Care Visit Vital Signs Vital signs: Vital Signs Temperature 98.4 F 01/26/25 14:54 Pulse Rate 89 01/26/25 14:54 Respiratory Rate 14 01/26/25 14:54 Blood Pressure 113/73 01/26/25 14:54 Pulse Oximetry 100 01/26/25 14:54 Oxygen Delivery Room Air 01/26/25 14:54 Temperature 98.4 F 01/26/25 14:54 Pulse Rate 89 01/26/25 14:54 Respiratory Rate 14 01/26/25 14:54 Blood Pressure 113/73 01/26/25 14:54 Pulse Oximetry 100 01/26/25 14:54 Oxygen Delivery Room Air 01/26/25 14:54 Reviewed. MDM - Dental/Oral MDM Narrative Medical decision making narrative: I evaluated this in the [facility] care. History is obtained from patient who is an independent historian and physical exam was performed.? Available medical records were reviewed. ? Exam findings and relevant testing show no acute concerns or changes; patient is non-toxic appearing and is in no distress. Patients pain and complaint coupled with physical findings are consistant with dentalgia. There are no focal signs of space occupying lesions that are compromising to the airway; no dysphagia, odynophagia, dysphonia, or dyspnea. No uvular deviation or soft palate edema. Patient is non-toxic appearing. The floor of the mouth is soft with no signs of Teja's Angina; no induration below mandible, no neck pain. Patient is without trismus or drooling and able to swallow secretions. Patient is felt appropriate for discharge home with dental follow up. ? Differential diagnosis and treatment plan were discussed with the patient. Patient agrees with discussion and after shared medical decision making agrees with plan of care. All questions were answered to the patient's satisfaction. Patient is appropriate for outpatient treatment and follow-up. Differential Diagnosis Differential diagnosis: Likely gingival abscess, dental caries, toothache, dental abscess, fracture of tooth and aphthous ulcer Critical Care Time Critical Care Time Critical Care Time: No Discharge Plan Discharge Clinical Impression: Dental abscess Patient Disposition: Home Condition: Stable Instructions: Antibiotic Form, Dental Abscess (ED) Additional Instructions: Take antibiotic as directed Avoid temperature extremes May apply heat or ice to the face Gentle brushing and flossing Take 2 extra strength Tylenol as needed for pain Follow-up with the dentist as soon as possible - see the list provided Patient Language: Sri Lankan Prescriptions: New amoxicillin-pot clavulanate 875-125 mg tablet 1 tablet PO Q12H 10 Days Qty: 20 0RF No Action PNV #[id number] 30 mg iron-10 mg iron-1 mg capsule PO aspirin [Adult Low Dose Aspirin] 81 mg tablet,delayed release (DR/EC) 81 mg PO DAILY ferrous sulfate 325 mg (65 mg iron) tablet 325 mg PO BID Follow-up/Referrals: PHYSICIAN,COMPLEX CARE NURSE PRACTITIONER [Primary Care Provider] - Time of Disposition: 15:08
== END 2025-01-26 15:15 | disposition home or self-care (01) ==
PROVIDERS: Emergency Provider Nurse Practitioner
DX: K04.7 Periapical abscess without sinus (principal); Z79.82 Long term (current) use of aspirin
CPT/HCPCS: 99213; G0463

== ENCOUNTER 2025-02-07 19:54 | Observation (INO) | payer OTHER, SELFPAY ==
--- OUTSIDE RECORDS SUMMARY | 2025-02-07 20:01 | XMS_ITS | Clinical Summary ---
Author Organization [facility] Care Team Providers Care Environmental Safety Specialist Name Role Phone Unavailable Primary Care Provider [...]
[2025-02-07 20:21] VITALS: BP 122/76; PULSE 98
[2025-02-07 20:30] VITALS: BP 109/79; PULSE 90
[2025-02-07 20:45] VITALS: BP 115/79; PULSE 88
[2025-02-07 21:29] LABS: Add Urine Microscopic? YES; Appearance Urine Cloudy (Clear); Glucose Urine UA Negative (Negative); Leukocyte Esterase Ur Negative LEU/UL (Negative); Nitrate Urine Negative (Negative); Non Pathogenic Casts 0-2; Specific Grav Ur 1.023 (1.001-1.035)
[2025-02-07] MEDS: LACTATED RINGERS 1,000 ML 999 ML (21:38)
[2025-02-08] VITALS (15 sets, daily range): BP systolic 99–117; BP diastolic 54–71; PULSE 100–122; O2SAT 95–98; BMI 29.6
[2025-02-08] MEDS: TERBUTALINE SULFATE 1 MG/ML VIAL 0.25 MG SUB-Q (00:07)
--- NOTE | 2025-02-08 01:25 | OBADM ---
This patient, Cindy Sotelo, admitted to the OB room OB Post 116 for observation. Patient/family oriented to hospital policies and general routines including ID bracelet, bed and alarms, visiting hours, pain management, procedures, bathroom and other care routines, personal items, smoking policy, room service/diet, and visiting hours. Patient/Family are encouraged to report perceived risks to care and to ask questions if they do not understand what they are told or what they should do.
--- NOTE | 2025-02-09 14:11 | P.PNOB_ITS ---
OB - Triage/Final Diagnosis Visit Information Date of evaluation: 02/08/25 Reason for evaluation: threatened labor Comments/Additional reasons for admission: I have assessed the risk for this patient, Cindy Castillo Ashleigh, and determined that she would benefit from observation care. Evaluation Laboratory results: Laboratory Tests 02/07/25 21:18 Urine Color Dark yellow Urine Appearance Cloudy H Urine pH 5.5 Ur Specific [place] 1.023 Urine Protein Negative Urine Glucose (UA) Negative Urine Ketones 1+ H Ur Blood (Man) Negative Urine Nitrate Negative Urine Bilirubin Negative Urine Urobilinogen 0.2 Leukocyte Esterase Rfl Negative Urine RBC 0-2 Urine WBC 0-5 Ur Squamous Epith Cells Many H Urine Bacteria None seen Urine Casts 0-2
== END 2025-02-08 01:45 | disposition home or self-care (01) ==
PROVIDERS: Student in an Organized Health Care Education/Training Program; Admitting Provider Obstetrics & Gynecology; Visit Provider Obstetrics & Gynecology
DX: O47.03 False labor before 37 completed weeks of gestation, third trimester (principal); Z3A.31 31 weeks gestation of pregnancy
CPT/HCPCS: 81001; 96372; G0378; G0379; J3105; J7120

== ENCOUNTER 2025-02-08 11:00 | Observation (INO) | payer OTHER, SELFPAY ==
[2025-02-08] VITALS (19 sets, daily range): BP systolic 111; BP diastolic 71; PULSE 96–130; O2SAT 96–100; BMI 30.4
--- OUTSIDE RECORDS SUMMARY | 2025-02-08 11:05 | XMS_ITS | Clinical Summary ---
Author Organization [facility] Care Team Providers Care Acid Bleacher Name Role Phone Unavailable Primary Care Provider [...]
[2025-02-08 12:14] LABS: Add Urine Microscopic? YES; Appearance Urine Cloudy (Clear); Glucose Urine UA Negative (Negative); Leukocyte Esterase Ur Negative LEU/UL (Negative); Nitrate Urine Negative (Negative); Non Pathogenic Casts 0-2; Specific Grav Ur 1.003 (1.001-1.035)
[2025-02-08] MEDS: LACTATED RINGERS 1,000 ML 999 ML IV CONT (12:53)
[2025-02-08] MEDS: TERBUTALINE SULFATE 1 MG/ML VIAL 0.25 MG SUB-Q (13:01)
--- NOTE | 2025-02-09 14:11 | P.PNOB_ITS ---
OB - Triage/Final Diagnosis Visit Information Date of evaluation: 02/07/25 Reason for evaluation: threatened labor Comments/Additional reasons for admission: I have assessed the risk for this patient, Cindy Castillo Ashleigh, and determined that she would benefit from observation care. Evaluation Laboratory results: Laboratory Tests 02/08/25 11:52 Urine Color Yellow Urine Appearance Cloudy H Urine pH 7.0 Ur Specific [place] 1.003 Urine Protein Negative Urine Glucose (UA) Negative Urine Ketones Negative Ur Blood (Man) Negative Urine Nitrate Negative Urine Bilirubin Negative Urine Urobilinogen 0.2 Ur Leukocyte Esterase Negative Urine RBC 0-2 Urine WBC 0-5 Ur Squamous Epith Cells Occasional Urine Bacteria None seen Urine Casts 0-2
== END 2025-02-08 14:13 | disposition home or self-care (01) ==
PROVIDERS: Admitting Provider Student in an Organized Health Care Education/Training Program; Visit Provider Student in an Organized Health Care Education/Training Program
DX: O47.03 False labor before 37 completed weeks of gestation, third trimester (principal); Z3A.31 31 weeks gestation of pregnancy
CPT/HCPCS: 81001; G0378; G0379; J3105; J7120

== ENCOUNTER 2025-02-09 10:24 | Observation (INO) | payer OTHER, SELFPAY ==
[2025-02-09] VITALS (34 sets, daily range): BP systolic 96–110; BP diastolic 58–77; PULSE 87–120; O2SAT 96–100; BMI 30.4
--- OUTSIDE RECORDS SUMMARY | 2025-02-09 10:40 | XMS_ITS | Clinical Summary ---
Author Organization [facility] Care Team Providers Care Cementer Machine Joiner Name Role Phone Unavailable Primary Care Provider [...]
--- NOTE | 2025-02-09 10:56 | PC.NURSE ---
Dr. Villarreal updated with pt ctx 2 min apart. Pt rates ctx5/10 but cannot say wether they are stronger or weaker than yesterday only that they are happening. Order received for SVE and a dose terb be given.
[2025-02-09] MEDS: TERBUTALINE SULFATE 1 MG/ML VIAL 0.25 MG SUB-Q (11:11)
--- NOTE | 2025-02-10 13:50 | PM.OBTRLD ---
OB - Triage/Final Diagnosis Visit Information Reason for evaluation: threatened labor Comments/Additional reasons for admission: I have assessed the risk for this patient, Cindy Sotelo, and determined that she would benefit from observation care.
== END 2025-02-09 12:55 | disposition home or self-care (01) ==
PROVIDERS: Admitting Provider Obstetrics & Gynecology; Visit Provider Obstetrics & Gynecology
DX: O47.03 False labor before 37 completed weeks of gestation, third trimester (principal); Z3A.31 31 weeks gestation of pregnancy
CPT/HCPCS: 96372; A9270; G0378; G0379; J3105

== ENCOUNTER 2025-02-11 08:10 | Observation (INO) | payer OTHER, SELFPAY ==
[2025-02-11 06:26] VITALS: PULSE 72; RESP 18; TEMP 36.7; O2SAT 99
--- OUTSIDE RECORDS SUMMARY | 2025-02-11 06:34 | XMS_ITS | Clinical Summary ---
Author Organization [facility] Care Team Providers Care Fruit Distributor Name Role Phone Unavailable Primary Care Provider [...]
[2025-02-11 06:42] VITALS: BP 95/65; PULSE 97
[2025-02-11 06:45] VITALS: BP 106/74; PULSE 113
[2025-02-11 07:00] VITALS: BP 106/74; PULSE 113
[2025-02-11] MEDS: TERBUTALINE SULFATE 1 MG/ML VIAL 0.25 MG SUB-Q (08:22)
--- OUTSIDE RECORDS SUMMARY | 2025-02-12 07:46 | XMS_ITS | Clinical Summary ---
Author Organization [facility] Care Team Providers Care Aquatic Instructor Name Role Phone Unavailable Primary Care Provider [...]
== END 2025-02-11 09:30 | disposition home or self-care (01) ==
PROVIDERS: Admitting Provider Obstetrics & Gynecology; Visit Provider Obstetrics & Gynecology
DX: O47.03 False labor before 37 completed weeks of gestation, third trimester (principal); Z3A.31 31 weeks gestation of pregnancy
CPT/HCPCS: 96372; G0378; G0379; J3105

== ENCOUNTER 2025-02-12 16:19 | Observation (INO) | payer OTHER, SELFPAY ==
[2025-02-12] VITALS (81 sets, daily range): BP systolic 99–114; BP diastolic 61–79; PULSE 92–138; TEMP 36.2–36.6; O2SAT 94–100; BMI 30.4
--- OUTSIDE RECORDS SUMMARY | 2025-02-12 16:25 | XMS_ITS | Clinical Summary ---
Author Organization [facility] Care Team Providers Care Industrial Engineering Manager Name Role Phone Unavailable Primary Care Provider [...]
[2025-02-12] MEDS: TERBUTALINE SULFATE 1 MG/ML VIAL 0.25 MG SUB-Q (17:15)
[2025-02-12 17:16] LABS: Non Pathogenic Casts 0-2
[2025-02-12 17:21] LABS: Glucose Urine UA Negative (Negative); Leukocyte Esterase Ur Trace LEU/UL (Negative); Nitrate Urine Negative (Negative); Specific Grav Ur 1.014 (1.001-1.035)
[2025-02-12 17:22] LABS: Add Urine Microscopic? YES; Appearance Urine Clear (Clear)
--- NOTE | 2025-02-23 16:25 | PM.OBTRLD ---
OB - Triage/Final Diagnosis Visit Information Comments/Additional reasons for admission: I have assessed the risk for this patient, Cindy Sotelo, and determined that she would benefit from observation care. Evaluation Laboratory results: Laboratory Tests 02/12/25 17:04 Urine Color Yellow Urine Appearance Clear Urine pH 6.5 Ur Specific [place] 1.014 Urine Protein Negative Urine Glucose (UA) Negative Urine Ketones Trace H Ur Blood (Man) Negative Urine Nitrate Negative Urine Bilirubin Negative Urine Urobilinogen 0.2 Leukocyte Esterase Rfl Trace H Urine RBC 0-2 Urine WBC 0-5 Ur Squamous Epith Cells Few Urine Bacteria None seen Urine Casts 0-2 Final Diagnosis (1) contractions: Code(s): O47.00 - False labor before 37 completed weeks of gestation, unspecified trimester Status: Acute
== END 2025-02-12 23:50 | disposition home or self-care (01) ==
PROVIDERS: Admitting Provider Obstetrics & Gynecology; Visit Provider Obstetrics & Gynecology
DX: O47.03 False labor before 37 completed weeks of gestation, third trimester (principal); Z3A.31 31 weeks gestation of pregnancy
CPT/HCPCS: 81001; 96372; A9270; G0378; G0379; J3105

== ENCOUNTER 2025-02-14 21:55 | Outpatient (RCR) | payer OTHER, SELFPAY ==
--- NOTE | 2025-02-14 22:35 | PC.NURSE ---
Pt discharged home in stable condition per order from Dr. Villarreal, Discharge instructions explained to pt, pt stated understanding, all questions and concerns answered. Pt ambulated out of department with all belongings.
[2025-02-14 22:56] VITALS: BP 102/60; PULSE 108
== END 2025-05-15 23:59 | disposition home or self-care (01) ==
LOC: ANHOBOP 21:55
PROVIDERS: Visit Provider Obstetrics & Gynecology
DX: O36.8130 Decreased fetal movements, third trimester, not applicable or unspecified (principal); Z3A.32 32 weeks gestation of pregnancy
CPT/HCPCS: 59025

== ENCOUNTER 2025-03-21 23:35 | Observation (INO) | payer OTHER, SELFPAY ==
[2025-03-22 00:15] VITALS: BP 117/75; PULSE 96
[2025-03-22 00:16] VITALS: BMI 30.5
--- NOTE | 2025-03-22 00:16 | OBADM ---
This patient, Cindy Sotelo, admitted to the OB room Labor/Delivery/Recovery 105 for observation. Patient/family oriented to hospital policies and general routines including ID bracelet, bed and alarms, visiting hours, pain management, procedures, bathroom and other care routines, personal items, smoking policy, room service/diet, and visiting hours. Patient/Family are encouraged to report perceived risks to care and to ask questions if they do not understand what they are told or what they should do.
[2025-03-22 00:30] VITALS: BP 111/76; PULSE 112
[2025-03-22 00:45] VITALS: BP 115/79; PULSE 101
--- NOTE | 2025-03-22 01:10 | PC.NURSE ---
Call placed to Dr. Mccrary reported pt c/o of ctx since 4 pm. SVE x2, FHR, CTX, Vitals. Pt history of labor. Pt not feeling all ctx and feels okay to go home. Order to d/c pt to home undelivered.
--- NOTE | 2025-03-22 01:25 | PC.NURSE ---
Pt discharged home undelivered in stable condition per order from Dr. Mccrary. Discharge instructions discussed and given to pt, pt stated understanding, all questions and concerns answered. Pt ambulated out of department with all belongings.
--- NOTE | 2025-03-24 13:37 | PM.OBTRLD ---
OB - Triage/Final Diagnosis Visit Information Comments/Additional reasons for admission: I have assessed the risk for this patient, Cindy Sotelo, and determined that she would benefit from observation care. Final Diagnosis (1) Irregular uterine contractions: Code(s): O47.9 - False labor, unspecified Status: Acute
== END 2025-03-22 01:25 | disposition home or self-care (01) ==
PROVIDERS: Admitting Provider Obstetrics & Gynecology; Visit Provider Obstetrics & Gynecology
DX: O47.1 False labor at or after 37 completed weeks of gestation (principal); Z3A.37 37 weeks gestation of pregnancy
CPT/HCPCS: G0378; G0379

== ENCOUNTER 2025-03-23 23:56 | Outpatient (RCR) | payer OTHER, SELFPAY ==
[2025-03-24 01:31] VITALS: BP 120/80; PULSE 84
== END 2025-06-21 23:59 | disposition home or self-care (01) ==
LOC: ANHOBOP 23:56
PROVIDERS: Visit Provider Obstetrics & Gynecology
DX: O47.03 False labor before 37 completed weeks of gestation, third trimester (principal); Z3A.37 37 weeks gestation of pregnancy
CPT/HCPCS: 59025

== ENCOUNTER 2025-04-08 16:59 | Inpatient (IN) | payer OTHER, SELFPAY ==
[2025-04-08] VITALS (84 sets, daily range): BP systolic 109–135; BP diastolic 59–87; PULSE 71–233; TEMP 36.8–37.3; O2SAT 71–100; BMI 30.4
--- OUTSIDE RECORDS SUMMARY | 2025-04-08 17:06 | XMS_ITS | Clinical Summary ---
Author Organization [facility] Care Team Providers Care Sash Finisher Name Role Phone Unavailable Primary Care Provider [...] Comments Hepatitis C Virus (HCV) Screening 1998 SARS-COV-2 Immunization ( season) 2024 Influenza Immunization (#1) 2025 Respiratory Syncytial Virus (RSV) Immunization (Adult) (1 [...]
--- NOTE | 2025-04-08 17:38 | LDADM ---
This patient, Cindy Sotelo, was admitted to Labor/Delivery/Recovery 104 on 04/08/25 at 16:59. Plans for labor, pain management and were discussed with patient. Patient/family oriented to hospital policies and general routines including ID bracelet, bed and alarms, visiting hours, pain management, procedures, bathroom and other care routines, personal items, smoking policy, room service/diet and guest tray routines, infant security routines, and visiting hours. Patient/Family are encouraged to report perceived risks to care and to ask questions if they do not understand what they are told or what they should do. See OBIX for further documentation.
[2025-04-08 17:57] LABS: Hematocrit 39.1 % (37.0-47.0); Hemoglobin 12.9 g/dL (12.0-15.0); Immature Granulocyte Percent A 1.6 % (0-0.5); Immature Platelet Fraction Pct 10.8 % (0.9-11.2); Lymphocytes Absolute Auto 1.83 K/mm3 (0.9-3.2); Mean Corpuscular HGB Conc 33.0 g/dl (32-36); Mean Corpuscular Hemoglobin 26.4 pg (26-34); Mean Corpuscular Volume 80.0 fl (80-100); Nucleated Red Blood Cells Absolute Auto 0.000 K/mm3 (0.0-0.012); Nucleated Red Blood Cells Perc 0.0 % (0.0-0.2); Platelet Count Result 132 k/mm3 (150-375); Red Blood Count 4.89 M/mm3 (4.2-5.4); White Blood Count 12.2 K/mm3 (4.5-10.0)
[2025-04-08 18:47] LABS: Syphilis IgG/IgM Antibody Non-Reactive (Nonreactive)
[2025-04-08] MEDS: LACTATED RINGERS 1,000 ML 125 ML IV CONT ×2 (18:57→19:41)
--- NOTE | 2025-04-08 19:15 | WPDANESEPPF ---
Anes - Initial Pre Proc Eval Procedure: labor epidural Date/Time: 04/08/25 19:15 Surgeon: aMrt Villarreal MD Pre Op Diagnosis: Labor pain Pre Op Diagnosis: IOL Patient Data Age: 25 Gender: F Height: 1.65 m Weight: 82.8 kg Last Vital Signs Temp 37.1 C 04/08/25 17:30 Pulse 90 04/08/25 19:01 BP 119/78 04/08/25 19:01 O2 Del Method Room Air 04/08/25 17:38 Allergies Allergy/AdvReac Type Severity Reaction Status Date / Time No Known Allergies Allergy Verified 04/07/25 15:12 Home Medications ?Medication ?Instructions ?Recorded ?Confirmed ?Type vitamins 30 30 mg iron-10 1 cap PO DAILY 09/03/24 04/08/25 History mg iron-folic acid 1 mg-om3 capsule aspirin 81 mg tablet,delayed 81 mg PO DAILY 12/31/24 04/08/25 History release (Adult Low Dose Aspirin) ferrous sulfate 325 mg (65 mg 325 mg PO BID 01/19/25 04/08/25 History iron) tablet nifedipine 10 mg capsule 10 mg PO Q12H #30 caps 02/11/25 04/07/25 Rx Laboratory Tests 04/08/25 17:39 WBC 12.2 H K/mm3 (4.5-10.0) RBC 4.89 M/mm3 (4.2-5.4) Hgb 12.9 D g/dL (12.0-15.0) Hct 39.1 % (37.0-47.0) MCV 80.0 fl (80-100) MCH 26.4 pg (26-34) MCHC 33.0 g/dl (32-36) RDW 16.1 H % (11.5-14.5) Plt Count 132 L k/mm3 (150-375) MPV 11.6 H fl (7.4-10.4) Immature Gran % (Auto) 1.6 H % (0-0.5) Neut % (Auto) 74.9 H % (45.5-73.1) Lymph % (Auto) 15.0 L % (18.3-44.2) [place] % (Auto) 7.2 % (2.6-8.5) Eos % (Auto) 0.9 % (0-4.4) Baso % (Auto) 0.4 % (0.2-1.2) Lymph # (Auto) 1.83 K/mm3 (0.9-3.2) [place] # (Auto) 0.9 H K/mm3 (0.1-0.6) Eos # (Auto) 0.1 K/mm3 (0-0.3) Baso # (Auto) 0.1 K/mm3 (0.0-0.1) Abs Immat Gran (auto) 0.20 H K/mm3 (0.00-0.031) Absolute Neuts (auto) 9.2 H K/mm3 (1.3-6.7) Absolute Nucleated RBC 0.000 K/mm3 (0.0-0.012) Nucleated RBC % 0.0 % (0.0-0.2) % Immature Plt Fraction 10.8 % (0.9-11.2) Syphilis IgG/IgM Ab Non-reactive (Nonreactive) Blood Type A Negative Antibody Screen Pending Patient hx anesthesia problems: none Family hx anesthesia problems: none Results Review: All pre-operative results and documents have been reviewed as part of the pre-operative evaluation. [facility] Past Medical History Medical History Depression Anxiety Family History Family History Grandparent Hypertension Mother Hypertension Social History Social History Smoking status: Never smoker Second hand tobacco smoke exposure: No Alcohol intake: former Alcohol use details: 5 month? Substance use: never Substance use type: does not use Do You Feel Safe in your Home?: Yes Lack of Transportation: No Lack of Food: Never True Current Housing: I Have Housing Concerned About Future Housing: No Difficulty Paying Gas/Electric Bills: No Difficulty Paying for Meds: No Currently Unemployed: No Education: High School Diploma/GED Difficulty w/ Childcare or Family Care: No Living arrangements: with family Additional living arrangements comments: Occupation/Education: occupation Additional occupation/education comments: patient access Gender identity (if verbalized by the patient): Female Sexual Orientation (if Verbalized by the Patient): Straight or Heterosexual Spiritual care concerns: No Anes - Eval Final PreProcedure Day of Procedure 04/08/25 19:15 Heart: regular rate and rhythm Lungs: clear to auscultation and normal air movement Airway: Mallampati scale class 1 Neurological: alert and oriented ASA classification: II Anesthetic plan: proceed Anesthesia type and monitoring: regional epidural and standard monitoring Results Review: All pre-operative results and documents have been reviewed as part of the pre-operative evaluation. Informed Consent: The patient's anesthetic plan and its attendant risks and benefits were discussed with the patient/family/POA. Questions were solicited and answers provided to the satisfaction of the patient/family/POA.
[2025-04-08] MEDS: OXYTOCIN 30 UNITS/NS 500 ML 30 UNITS/500 ML BAG 999 UNITS IV CONT (22:44)
--- NOTE | 2025-04-08 23:00 | PM.OBPRVD ---
OB - Vaginal Delivery Note Procedure Delivery date: 04/08/25 Induction method: None Delivery monitor: External FHT and External Uterine Route of delivery: Episiotomy description: None Laceration Description: Periurethral Delivery repair: chromic Specimen: No Quantitative Blood Loss (ml): 500 Anesthesia type: Epidural Disposition: Floor Complications: No immediate complications Narrative: Patient prepped and draped in usual manner for this procedure. Maternal expulsive efforts readily delivered vertex over intact perineum. Nuchal cord was noted, reduced, and the rest of baby was delivered without difficulty. Cord clamped cut and placenta delivered spontaneously. Cervix vagina vulva inspected with periurethral laceration noted. This was approximated using 0 chromic in running interlocking manner with good approximation hemostasis noted. Red rubber catheter was placed to ensure patency of the urethra. Immediate postoperative condition of mother and baby were both excellent. Baby Gestational Age by Date: 40 Infant gender: Male Weight (pounds): 8 Weight (ounces): 1 presentation: vertex position: Right Occiput Anterior Placenta delivery description: Spontaneous Cord Vessel Description: 3 Vessels, Nuchal Cord and Reduced
--- NOTE | 2025-04-08 23:03 | WPDHPUPDATE1 ---
History and Physical Update Update Date/Time: 04/08/25 23:03 History and Physical has been reviewed, including an updated exam of the patient. There are NO changes in the patient's condition. Risks, benefits, and alternatives have been discussed and questions answered. Patient agrees to proceed with procedure.
[2025-04-08] MEDS: OXYTOCIN 30 UNITS/NS 500 ML 30 UNITS/500 ML BAG 125 UNITS IV CONT (23:21)
[2025-04-09] VITALS (21 sets, daily range): BP systolic 103–139; BP diastolic 66–83; PULSE 76–96; RESP 16–20; TEMP 36.8–37.4; O2SAT 95–100
--- NOTE | 2025-04-09 01:02 | OBPPTRN ---
Patient transferred to post room #291 via wheelchair. Support person present. Oriented to unit, room, information board, rooming in, admission packet and security measures. Patient verbalizes understanding.
[2025-04-09] MEDS: IBUPROFEN 600 MG TABLET PO ×4 (01:25→22:35)
[2025-04-09 04:23] LABS: Hematocrit 33.2 % (37.0-47.0); Hemoglobin 11.1 g/dL (12.0-15.0)
[2025-04-09] MEDS: MULTIVIT/MIN/PREN/FOL AC/IRON TABLET 1 TAB PO (09:44)
[2025-04-09] MEDS: DOCUSATE SODIUM 100 MG CAPSULE PO ×2 (09:44→17:09)
[2025-04-09] MEDS: RHO(D) IMMUNE GLOBULIN 300 MCG/2 ML SYRINGE IM (09:47)
--- NOTE | 2025-04-09 12:15 | PC.NURSE ---
Introductions were made, then consulted with patient to assess needs related to . Mother led the conversation with her?plans to feed?her infant and the?experience so far. Mother verbalizes she is able to independently latch with appropriate positioning and alignment. She denies any nipple discomfort and is responsively . Nipple cream was provided to mother for nipple sensativity. Mother declines any additional assistance or education at this time. Mother is encouraged to call for assistance if her doesn?t latch, pain with latching, questions or concerns. Mother voiced understanding of information shared along with the mom/baby guide for an additional resource. Reported to the Primary RN.
[2025-04-10 07:55] VITALS: BP 115/86; PULSE 76; RESP 18; TEMP 37.1; O2SAT 99
--- NOTE | 2025-04-10 08:40 | P.DS_ITS ---
DS: Admitting Diagnosis Discharge Date 04/10/2025 Admitting Diagnosis DS: Discharge Diagnosis Discharge Diagnosis (1) , delivered: Code(s): O80 - Encounter for full-term uncomplicated delivery Status: Acute OB - DS: Summary OB Procedures : None OB Procedures Intrapartum: Spontaneous Vag Delivery OB Procedures: : None Peripartum Data Laceration Description: Periurethral Episiotomy description: None Time Spent with Patient Time attestation: Total time spent providing and/or coordinating discharge services: DS: Data Data Completed and Pending Labs on day of discharge: Labs from last 24 hours 04/09/25 04:15 Blood Type A Negative Antibody Screen Negative Screen Negative Baby's Blood Type A pos Baby's JAMES Negative Doses of RhIg Required 1 Discharge Plan Discharge Discharging Clinician: Mart Villarreal Patient Disposition: Home Activity: as tolerated and pelvic rest Diet: as tolerated Patient Instructions: Antibiotic Form Patient Language: Cape Verdean Stand Alone Forms: General Discharge Information Follow-up/Referrals: Mart Villarreal MD [Physician, MANAGER ENGINE] - 3 Weeks Discharge Medications: New ibuprofen 600 mg Tablet 600 mg PO Q6H PRN (Reason: Cramping) Qty: 30 0RF Continued PNV [id number] [id number] 30 mg iron-10 mg iron-1 mg capsule 1 cap PO DAILY ferrous sulfate 325 mg (65 mg iron) tablet 325 mg PO BID Discontinued aspirin [Adult Low Dose Aspirin] 81 mg tablet,delayed release (DR/EC) 81 mg PO DAILY nifedipine 10 mg capsule 10 mg PO Q12H Qty: 30 1RF Date of admission: 04/08/25 16:59 Primary Care Provider: PHYSICIAN,EDITOR IN CHIEF NEWSPAPER Admitting Provider: Mart Villarreal Attending physician on admission: Mart Villarreal Condition: Stable
[2025-04-10] MEDS: IBUPROFEN 600 MG TABLET PO (08:45)
[2025-04-10] MEDS: DOCUSATE SODIUM 100 MG CAPSULE PO (08:45)
[2025-04-10] MEDS: MULTIVIT/MIN/PREN/FOL AC/IRON TABLET 1 TAB PO (08:45)
--- NOTE | 2025-04-10 10:18 | PC.NURSE ---
0800 Consulted with mother concerning needs and she shared her ability to independently latch optimally without pain. Per mother she has supplemented with only a few bottles of formula if she felt like baby was not completely satisfied after a feeding. She is requesting an insurance breast pump as she had history of low milk supply with her first baby and would like to use a breast pump if she needs to. Mother is feeding appropriately for growth of and understands stimulating to eat if needed. has had appropriate feedings in the last 24 hours meets the outcomes for weight, output, blood sugar and jaundice at this time. Reinforced understanding of milk production, transition of milk, signs of adequate intake, transition of stool, prevention/relief of engorgement, plugged ducts, mastitis, responsive watching for feeding cues, the different methods of stimulating infant to breastfeed 1-3 hours after the start of the last feeding, community resources, and when to call a provider using the resource of the feeding sheet along with the mom and baby guide. Mother voiced understanding of the information shared, is confident to continue effectively her at home, when to call for assistance, denies any additional assistance or education at this time. Reported to the Primary RN. 1000 An insurance breast pump (Medela and size 27 flanges) was provided due to mother's request, her last child is three years old and she has history of low milk supply. Instructions given on cleaning, care, usage, that there should be no pain, pumping schedule for milk production, collection, and storage of human milk. Patient was assessed for correct placement, flange size, to pump for comfort and nipple stretching/stimulation for adequate milk production. Parents are encouraged to record the pumping schedule on the feeding sheet.?Mother voiced understanding of the education shared along with mom/baby guide and the pump measurement, flange fit handout for additional resource information. Reported to the Primary RN.
[2025-04-11 11:10] VITALS: BP 115/89; PULSE 99; RESP 18; TEMP 37.1; O2SAT 100
== END 2025-04-10 10:13 | disposition home or self-care (01) | DRG 560 ==
LOC: ANHLDR 17:04 → ANHOB2 04-09 01:03
PROVIDERS: Admitting Provider Obstetrics & Gynecology; Visit Provider Obstetrics & Gynecology
DX: O32.6XX0 Maternal care for compound presentation, not applicable or unspecified (principal); Z37.0 Single live birth; Z3A.40 40 weeks gestation of pregnancy; O69.81X0 Labor and delivery complicated by cord around neck, without compression, not applicable or unspecified; O71.82 Other specified trauma to perineum and vulva; O70.0 First degree perineal laceration during delivery
CPT/HCPCS: 36415; 85014; 85018; 85025; 85055; 85461; 86593; 86850; 86880; 86900; 86901; 86902; 90384; A9270; J2590; J2790; J7120

== ENCOUNTER 2025-05-24 09:23 | Emergency (ER) | payer OTHER, SELFPAY ==
--- NOTE | 2025-05-24 09:26 | ED_ITS ---
HPI - General Adult General Chief complaint: Upper Respiratory Infection Stated complaint: chest tightness/sore throat Time Seen by Provider: 05/24/25 09:26 Source: patient Mode of arrival: ambulatory Limitations: no limitations History of Present Illness HPI narrative: 25-year-old female patient presents to the [facility] with complaints of cold symptoms. Patient states symptoms started about 5-6 days ago. Patient states that her was diagnosed with strep throat and pneumonia last week. Patient did states she has been having on and off low-grade fever of about 100. Patient denies any chills or body aches. Denies any coughing. States mild sore throat. Denies any ear pain. Patient states at times she feels like she has got some chest pain with a cough at times. Patient denies any vomiting or diarrhea states abdominal pain at times as well. Patient states she is not taking anything for her symptoms since they began. Related Data Home Medications ?Medication ?Instructions ?Recorded ?Confirmed ?Last Taken ?Type vitamins 30 30 mg iron-10 1 cap PO DAILY 08/2304/29/25 04/08/25 08:00 History mg iron-folic acid 1 mg-om3 capsule ferrous sulfate 325 mg (65 mg 325 mg PO BID 01/19/25 1 04/08/25 08:00 History iron) tablet Allergies Allergy/AdvReac Type Severity Reaction Status Date / Time No Known Allergies Allergy Verified 04/29/25 09:58 Review of Systems Review of Systems: CONSTITUTIONAL: Positive low-grade fever, denies chills, or sweats. EYES: Denies visual changes, redness, or discharge. ENT: Denies rhinorrhea, congestion, positive mild sore throat, denies otalgia. CARDIOVASCULAR: Denies chest pain, palpitations, or edema. RESPIRATORY: Positive mild cough or dyspnea. GASTROINTESTINAL: Denies abdominal pain, nausea, vomiting, or diarrhea. GENITOURINARY: Denies dysuria or hematuria. SKIN: Denies rash or itching. MUSCULOSKELETAL: Denies back pain, joint pain, or myalgia. NEUROLOGIC: Denies headache, numbness, or weakness. PSYCHIATRIC: Denies anxiety or depression. FOR[facility]LY [facility], [facility] Past Medical History Medical History Depression Anxiety Family History Family History Grandparent Hypertension Mother Hypertension Social History Social History Smoking status: Never smoker Second hand tobacco smoke exposure: No Alcohol intake: former Alcohol use details: 5 month? Substance use: never Substance use type: does not use Do You Feel Safe in your Home?: Yes Lack of Transportation: No Lack of Food: Never True Current Housing: I Have Housing Concerned About Future Housing: No Difficulty Paying Gas/Electric Bills: No Difficulty Paying for Meds: No Currently Unemployed: No Education: High School Diploma/GED Difficulty w/ Childcare or Family Care: No Living arrangements: with family Additional living arrangements comments: Occupation/Education: occupation Additional occupation/education comments: patient access Gender identity (if verbalized by the patient): Female Sexual Orientation (if Verbalized by the Patient): Straight or Heterosexual Spiritual care concerns: No Comments At the time of my signature I agree with nursing past medical history, surgical, social, and family history. There is no relevant family history pertinent to the presenting complaint. Exam Narrative: GENERAL: Well-appearing, well-nourished, and in no acute distress. HEAD: Normocephalic, atraumatic. EYES: PERRLA and EOMI. ENT: Nares with erythema edema noted bilaterally, yellow rhinorrhea denies epistaxis. Mucous membranes moist. Posterior pharynx with no erythema, tonsillar enlargement, exudates or lesions present. Bilateral TMs are clear no erythema or foreign bodies canal. NECK: Supple. No lymphadenopathy CHEST: Clear to auscultation. No respiratory distress. HEART: Regular rate and rhythm. No murmur heard. Normal peripheral pulses. ABDOMEN: Soft, nontender, nondistended, normal active bowel sounds. EXTREMITIES: Normal range of motion. No edema. SKIN: Warm, dry, no rash. NEURO: No focal deficits. Alert and oriented x3. Course Course Level of Care: Express Care Visit Vital Signs Vital signs: Vital Signs Temperature 36.8 C 05/24/25 09:35 Pulse Rate 86 05/24/25 09:35 Respiratory Rate 20 05/24/25 09:35 Blood Pressure 114/71 05/24/25 09:35 Pulse Oximetry 99 05/24/25 09:35 Oxygen Delivery Room Air 05/24/25 09:35 Temperature 36.8 C 05/24/25 09:35 Pulse Rate 86 05/24/25 09:35 Respiratory Rate 20 05/24/25 09:35 Blood Pressure 114/71 05/24/25 09:35 Pulse Oximetry 99 05/24/25 09:35 Oxygen Delivery Room Air 05/24/25 09:35 Vital signs reviewed. Medical Decision Making MDM Narrative Medical decision making narrative: Discussed with patient that her point of care testing for influenza COVID and strep were all negative today. Discussed with her that her lungs are nice and clear the fact that she had really does not have much of a cough I think is very low likelihood of her having pneumonia. Discussed with patient continue taking [id number] Tylenol Motrin and may also recommend increasing her vitamin-C, zinc and vitamin D to help boost her immune system. Patient verbalized understanding denies any other questions or concerns at this time. Differential Diagnosis Differential Diagnosis: Differential diagnosis: Allergic rhinitis, chronic sinusitis, tonsillitis, acute sinusitis, infectious mononucleosis, seasonal influenza, pertussis, diphtheria, meningococcal disease, viral syndrome, viral bronchitis, RSV, COVID- 19 Vital Signs Vital Signs: Vital Signs Temperature 36.8 C 05/24/25 09:35 Pulse Rate 86 05/24/25 09:35 Respiratory Rate 20 05/24/25 09:35 Blood Pressure 114/71 05/24/25 09:35 Pulse Oximetry 99 05/24/25 09:35 Oxygen Delivery Room Air 05/24/25 09:35 Temperature 36.8 C 05/24/25 09:35 Pulse Rate 86 05/24/25 09:35 Respiratory Rate 20 05/24/25 09:35 Blood Pressure 114/71 05/24/25 09:35 Pulse Oximetry 99 05/24/25 09:35 Oxygen Delivery Room Air 05/24/25 09:35 Lab Data Labs: Lab Results 05/24/25 Range/Units 09:33 POC Influenza A Ag Negative (Negative) POC Influenza B Ag Negative (Negative) POC SARS CoV-2 Ag Negative (Negative) POC Grp A Strep Screen Negative (Negative) Critical Care Time Critical Care Time Critical Care Time: No Discharge Plan Discharge Clinical Impression: Viral URI, Pharyngitis Patient Disposition: Home Condition: Stable Instructions: Antibiotic Form, Viral Syndrome (ED) Additional Instructions: Viral illness may last between 7-12days; antibiotic is NOT recommended at this time. Recommend antihistamine such as Benadryl at night time and Claritin/Zyr sheila/Estela during the day Cough syrup may cause drowsiness; avoid driving or take it at night time. Also, recommend symptomatic treatment includes: rest, fluids, and increase humidity of the air at home. Recommend Acetaminophen or nonsteroidal anti-inflammatory agents (NSAIDs) as directed in the bottle to reduce fever and/pain/headache. Avoid smoking/second-hand smoke. Limit visits to areas with large crowds. Please schedule a follow-up visit with your personal physician for further evaluation and treatment within 3-5days. Including recheck and discussion of your blood pressure. If your symptoms persist, change or worsen significantly before you can contact your personal physician then please, without delay, go to the emergency department for further evaluation. Patient Language: Brazilian Prescriptions: No Action PNV [id number]-[id number] [id number]-[id number] 30 mg iron-10 mg iron-1 mg capsule 1 cap PO DAILY ferrous sulfate 325 mg (65 mg iron) tablet 325 mg PO BID drospirenone-ethinyl estradiol [EMILY (28)] 3-0.02 mg tablet 1 tablet PO DAILY Qty: 84 3RF Follow-up/Referrals: PHYSICIAN,METAL MINER [Primary Care Provider, Internal Medicine] Time of Disposition: 10:17
[2025-05-24 09:35] VITALS: BP 114/71; PULSE 86; RESP 20; TEMP 36.8; O2SAT 99
[2025-05-24 09:55] LABS: EDCOVIDSCREEN Negative (Negative); EDINFLUASCREEN Negative (Negative); EDINFLUBSCREEN Negative (Negative); EDSTREPNEGPOS1 Negative (Negative)
== END 2025-05-24 10:27 | disposition home or self-care (01) ==
PROVIDERS: Emergency Provider Nurse Practitioner Family
DX: J06.9 Acute upper respiratory infection, unspecified (principal); J02.9 Acute pharyngitis, unspecified; Z20.822 Contact with and (suspected) exposure to COVID-19
CPT/HCPCS: 87081; 87426; 87804; 87880; 99213; G0463